=== PATIENT | female | born 1940 | race Caucasian/White ===

== ENCOUNTER → 2018-02-10 08:09 | Outpatient (CLI) | payer MEDICARE, SELFPAY ==
[2018-02-10 09:09] LABS: Add Manual Diff / Slide Review NO; Basophils Percent Auto 0.9 % (0-2); Eosinophils Percent Auto 3.8 % (2-4); Hematocrit 39.5 % (36-46); Hemoglobin 13.4 g/dL (12.0-16.0); Lymphocytes Percent Auto 21.8 % (25-40); Mean Corpuscular HGB Conc 33.9 % (30-36); Mean Corpuscular Hemoglobin 30.4 PG (26-34); Mean Corpuscular Volume 89.7 fL (80-100); Monocytes Percent Auto 9.2 % (3-14); Neutrophils Absolute Auto 5100 /uL (3000-5900); Neutrophils Percent Auto 64.3 % (50-75); Platelet Count 274 X10^3/uL (150-400); Red Cell Distribution Width 14.4 % (11.6-14.8); White Blood Cell Count 7.9 X10^3/uL (4.5-11.0)
[2018-02-10 09:22] LABS: Hemoglobin A1C% w Est Avg Glu 6.6 % (4.0-6.0)
[2018-02-10 09:38] LABS: Alanine Aminotransferase 33 IU/L (9-52); Albumin 4.4 g/dL (3.5-5.0); Albumin Globulin Ratio 1.5 (1.0-2.8); Alkaline Phosphatase 53 U/L (38-126); Aspartate Aminotransferase 29 IU/L (14-36); BUN Creatinine Ratio 21.9 (6-22); Bilirubin Total 0.4 mg/dL (0.2-1.3); Blood Urea Nitrogen 35 mg/dL (7-17); Calcium 10.5 mg/dL (8.4-10.2); Carbon Dioxide 30 mmol/L (22-32); Chloride 104 mmol/L (98-107); Cholesterol 154 mg/dL (140-199); Estimated Glomerular Filt Rate 31.4 mL/min (>60); Glucose 85 mg/dL (80-110); HDL Cholesterol 39 mg/dL (40-60); HEMOLYSIS < 15 (0-50); LDL Cholesterol Calculated 79 mg/dL (<100); Potassium 4.3 mmol/L (3.4-5.1); Sodium 146 mmol/L (137-145); Total Protein 7.4 g/dL (6.3-8.2); Triglycerides 181 mg/dL (35-150)
== END ==
PROVIDERS: PCP Family Medicine; Visit Provider Family Medicine
DX: E11.9 Type 2 diabetes mellitus without complications (principal); I10 Essential (primary) hypertension; E78.5 Hyperlipidemia, unspecified
CPT/HCPCS: 36415; 80053; 80061; 82565; 83036; 84520; 85025

== ENCOUNTER → 2018-08-20 08:12 | Outpatient (CLI) | payer MEDICARE, SELFPAY ==
[2018-08-20 09:27] LABS: Add Manual Diff / Slide Review NO; Basophils Absolute Auto 100 /uL (0-100); Basophils Percent Auto 1.2 % (0-2); Eosinophils Absolute Auto 400 /uL (0-450); Eosinophils Percent Auto 5.2 % (2-4); Hemoglobin 13.4 g/dL (12.0-16.0); Lymphocytes Absolute Auto 1800 /uL (1100-4500); Lymphocytes Percent Auto 21.1 % (25-40); Mean Corpuscular HGB Conc 34.3 % (30-36); Mean Corpuscular Hemoglobin 31.4 PG (26-34); Mean Corpuscular Volume 91.4 fL (80-100); Monocytes Absolute Auto 700 /uL (0-900); Monocytes Percent Auto 8.2 % (3-14); Neutrophils Absolute Auto 5500 /uL (1500-7000); Neutrophils Percent Auto 64.3 % (50-75); Platelet Count 276 X10^3/uL (150-400); Red Blood Cell Count 4.27 X10^6/uL (4.0-5.2); Red Cell Distribution Width 13.7 % (11.6-14.8); White Blood Cell Count 8.5 X10^3/uL (4.5-11.0)
[2018-08-20 09:37] LABS: Hemoglobin A1C% w Est Avg Glu 6.6 % (4.0-6.0)
[2018-08-20 09:57] LABS: Alanine Aminotransferase 27 IU/L (9-52); Albumin 4.5 g/dL (3.5-5.0); Albumin Globulin Ratio 1.4 (1.0-2.8); Alkaline Phosphatase 56 U/L (38-126); Aspartate Aminotransferase 31 IU/L (14-36); BUN Creatinine Ratio 25.4 (6-22); Bilirubin Total 0.3 mg/dL (0.2-1.3); Blood Urea Nitrogen 33 mg/dL (7-17); Calcium 10.4 mg/dL (8.4-10.2); Carbon Dioxide 28 mmol/L (22-32); Chloride 101 mmol/L (98-107); Cholesterol 165 mg/dL (140-199); Estimated Glomerular Filt Rate 39.8 mL/min (>60); Globulin 3.3 g/dL (1.7-4.1); Glucose 83 mg/dL (80-110); HDL Cholesterol 35 mg/dL (40-60); HEMOLYSIS < 15 (0-50); LDL Cholesterol Calculated 85 mg/dL (<100); Sodium 141 mmol/L (137-145); Total Protein 7.8 g/dL (6.3-8.2); Triglycerides 224 mg/dL (35-150)
[2018-08-20 10:28] LABS: TSH w/ Reflex to FT4 3.75 uIU/mL (0.47-4.68)
[2018-08-23 17:39] LABS: Parathyroid Hormone Int 6 pg/mL (14-64)
== END ==
PROVIDERS: Family Provider Family Medicine; PCP Family Medicine; Visit Provider Family Medicine
DX: E11.9 Type 2 diabetes mellitus without complications (principal); E78.5 Hyperlipidemia, unspecified; I10 Essential (primary) hypertension; E83.52 Hypercalcemia
CPT/HCPCS: 36415; 80053; 80061; 83036; 83970; 84443; 85025

== ENCOUNTER → 2019-03-04 07:50 | Outpatient (CLI) | payer MEDICARE, SELFPAY ==
[2019-03-04 08:32] LABS: Hemoglobin A1C% w Est Avg Glu 7.7 % (4.0-6.0)
[2019-03-04 08:56] LABS: Creatinine Urine Random 72.4 mg/dL
[2019-03-04 09:01] LABS: BUN Creatinine Ratio 30.7 (6-22); Blood Urea Nitrogen 43 mg/dL (7-17); Carbon Dioxide 24 mmol/L (22-32); Chloride 105 mmol/L (98-107); Estimated Glomerular Filt Rate 36.6 mL/min (>60); Glucose 114 mg/dL (80-110); HEMOLYSIS < 15 (0-50); Microalbumin Urine Random 2.1 mg/dL (0-1.6); Potassium 4.6 mmol/L (3.4-5.1); Sodium 140 mmol/L (137-145)
== END ==
PROVIDERS: PCP Family Medicine; Visit Provider Family Medicine
DX: E11.9 Type 2 diabetes mellitus without complications (principal); I10 Essential (primary) hypertension
CPT/HCPCS: 36415; 80048; 82043; 82570; 83036

== ENCOUNTER → 2019-10-29 07:46 | Outpatient (CLI) | payer MEDICARE, SELFPAY ==
[2019-10-29 08:32] LABS: Add Manual Diff / Slide Review NO; Basophils Absolute Auto 100 /uL (0-100); Basophils Percent Auto 1.1 % (0-2); Eosinophils Absolute Auto 300 /uL (0-450); Eosinophils Percent Auto 3.4 % (2-4); Hematocrit 38.1 % (36-46); Hemoglobin 13.2 g/dL (12.0-16.0); Lymphocytes Absolute Auto 1800 /uL (1100-4500); Lymphocytes Percent Auto 18.8 % (25-40); Mean Corpuscular HGB Conc 34.7 % (30-36); Mean Corpuscular Hemoglobin 32.1 PG (26-34); Mean Corpuscular Volume 92.5 fL (80-100); Monocytes Absolute Auto 800 /uL (0-900); Neutrophils Absolute Auto 6400 /uL (1500-7000); Neutrophils Percent Auto 67.7 % (50-75); Platelet Count 263 X10^3/uL (150-400); Red Blood Cell Count 4.12 X10^6/uL (4.0-5.2); Red Cell Distribution Width 14.4 % (11.6-14.8); White Blood Cell Count 9.4 X10^3/uL (4.5-11.0)
[2019-10-29 08:34] LABS: Hemoglobin A1C% w Est Avg Glu 8.3 % (4.0-6.0)
[2019-10-29 08:37] LABS: Alanine Aminotransferase 27 IU/L (<35); Albumin 4.3 g/dL (3.5-5.0); Albumin Globulin Ratio 1.3 (1.0-2.8); Alkaline Phosphatase 63 U/L (38-126); Aspartate Aminotransferase 31 IU/L (14-36); BUN Creatinine Ratio 23.5 (6-22); Bilirubin Total 0.4 mg/dL (0.2-1.3); Blood Urea Nitrogen 31 mg/dL (7-17); Calcium 10.4 mg/dL (8.4-10.2); Carbon Dioxide 30 mmol/L (22-32); Chloride 103 mmol/L (98-107); Cholesterol 160 mg/dL (140-199); Globulin 3.3 g/dL (1.7-4.1); Glucose 89 mg/dL (80-110); HDL Cholesterol 31 mg/dL (40-60); HEMOLYSIS < 15 (0-50); LDL Cholesterol Calculated 80 mg/dL (<100); Potassium 4.1 mmol/L (3.4-5.1); Sodium 139 mmol/L (137-145); Total Protein 7.6 g/dL (6.3-8.2); Triglycerides 245 mg/dL (35-150)
[2019-10-29 09:10] LABS: Thyroid Stimulating Hormone 3.18 uIU/mL (0.47-4.68)
[2019-10-29 10:10] LABS: Creatinine Urine Random 59.6 mg/dL
[2019-10-29 10:14] LABS: Microalbumi Creatinin Ratio Ur 55.3 ug/mg CR (<30); Microalbumin Urine Random 3.3 mg/dL (0-1.6)
== END ==
PROVIDERS: PCP Family Medicine; Referring Provider Family Medicine; Visit Provider Family Medicine
DX: E11.9 Type 2 diabetes mellitus without complications (principal); E78.5 Hyperlipidemia, unspecified; I10 Essential (primary) hypertension
CPT/HCPCS: 36415; 80053; 80061; 82043; 82570; 83036; 84443; 85025

== ENCOUNTER → 2020-05-17 15:57 | Outpatient (CLI) | payer MEDICARE, SELFPAY ==
[2020-05-17 17:21] LABS: BUN Creatinine Ratio 23.7 (6-22); Blood Urea Nitrogen 37 mg/dL (7-17); Calcium 10.3 mg/dL (8.4-10.2); Carbon Dioxide 29 mmol/L (22-32); Chloride 103 mmol/L (98-107); Estimated Glomerular Filt Rate 32.1 mL/min (>60); Glucose 86 mg/dL (80-110); HEMOLYSIS < 15 (0-50); Potassium 4.3 mmol/L (3.4-5.1); Sodium 139 mmol/L (137-145)
== END ==
PROVIDERS: PCP Family Medicine; Referring Provider Family Medicine; Visit Provider Family Medicine
DX: E11.9 Type 2 diabetes mellitus without complications (principal)
CPT/HCPCS: 36415; 80048; 83036

== ENCOUNTER → 2020-07-07 16:15 | Outpatient (CLI) | payer MEDICARE, SELFPAY ==
[2020-07-07] MEDS: COVID-19 VACC, Ad26(JANSSEN)/PF 0.5 ML IM (16:47)
== END ==
PROVIDERS: PCP Family Medicine; Visit Provider Internal Medicine
DX: Z23 Encounter for immunization (principal)
CPT/HCPCS: 0031A; 91303

== ENCOUNTER → 2020-11-14 09:39 | Outpatient (CLI) | payer MEDICARE, SELFPAY ==
[2020-11-14 10:22] LABS: BUN Creatinine Ratio 19.2 (6-22); Blood Urea Nitrogen 30 mg/dL (7-17); Calcium 10.8 mg/dL (8.4-10.2); Carbon Dioxide 25 mmol/L (22-32); Chloride 104 mmol/L (98-107); Estimated Glomerular Filt Rate 32.1 mL/min (>60); Glucose 76 mg/dL (80-110); HEMOLYSIS < 15 (0-50); Potassium 4.3 mmol/L (3.4-5.1); Sodium 141 mmol/L (137-145)
[2020-11-14 10:37] LABS: Creatinine Urine Random 53.4 mg/dL
[2020-11-14 10:41] LABS: Microalbumi Creatinin Ratio Ur 136.7 ug/mg CR (<30); Microalbumin Urine Random 7.3 mg/dL (0-1.6)
== END ==
PROVIDERS: PCP Family Medicine; Referring Provider Family Medicine; Visit Provider Family Medicine
DX: E11.9 Type 2 diabetes mellitus without complications (principal); E78.5 Hyperlipidemia, unspecified; N18.9 Chronic kidney disease, unspecified
CPT/HCPCS: 36415; 80048; 82043; 82570; 83036

== ENCOUNTER → 2021-05-15 09:51 | Outpatient (CLI) | payer MEDICARE, SELFPAY ==
[2021-05-15 11:14] LABS: Hemoglobin A1C% w Est Avg Glu 7.7 % (4.0-6.0)
[2021-05-15 12:55] LABS: BUN Creatinine Ratio 23.1 (6-22); Blood Urea Nitrogen 36 mg/dL (7-17); Calcium 11.2 mg/dL (8.4-10.2); Carbon Dioxide 28 mmol/L (22-32); Chloride 101 mmol/L (98-107); Glucose 102 mg/dL (80-110); HEMOLYSIS < 15 (0-50); Potassium 4.9 mmol/L (3.4-5.1); Sodium 141 mmol/L (137-145)
[2021-05-15 16:03] LABS: Microalbumi Creatinin Ratio Ur 143.6 ug/mg CR (<30); Microalbumin Urine Random 13.5 mg/dL (0-1.6)
== END ==
PROVIDERS: PCP Family Medicine; Referring Provider Family Medicine; Visit Provider Family Medicine
DX: E11.9 Type 2 diabetes mellitus without complications (principal)
CPT/HCPCS: 36415; 80048; 82043; 82570; 83036

== ENCOUNTER → 2021-11-07 09:11 | Outpatient (CLI) | payer MEDICARE, SELFPAY ==
[2021-11-07 10:44] LABS: Add Manual Diff / Slide Review NO; Basophils Absolute Auto 100 /uL (0-100); Eosinophils Absolute Auto 300 /uL (0-450); Eosinophils Percent Auto 3.4 % (2-4); Hematocrit 38.8 % (36-46); Hemoglobin 13.3 g/dL (12.0-16.0); Lymphocytes Absolute Auto 1900 /uL (1100-4500); Lymphocytes Percent Auto 20.3 % (25-40); Mean Corpuscular HGB Conc 34.3 % (30-36); Mean Corpuscular Hemoglobin 31.3 PG (26-34); Mean Corpuscular Volume 91.1 fL (80-100); Monocytes Absolute Auto 800 /uL (0-900); Neutrophils Absolute Auto 6100 /uL (1500-7000); Neutrophils Percent Auto 66.3 % (50-75); Platelet Count 289 X10^3/uL (150-400); Red Blood Cell Count 4.26 X10^6/uL (4.0-5.2); Red Cell Distribution Width 14.8 % (11.6-14.8); White Blood Cell Count 9.2 X10^3/uL (4.5-11.0)
[2021-11-07 11:05] LABS: Alanine Aminotransferase 25 IU/L (<35); Albumin 4.2 g/dL (3.5-5.0); Albumin Globulin Ratio 1.4 (1.0-2.8); Alkaline Phosphatase 53 U/L (38-126); Aspartate Aminotransferase 28 IU/L (14-36); BUN Creatinine Ratio 23.2 (6-22); Bilirubin Total 0.5 mg/dL (0.2-1.3); Blood Urea Nitrogen 32 mg/dL (7-17); Calcium 10.8 mg/dL (8.4-10.2); Carbon Dioxide 26 mmol/L (22-32); Chloride 104 mmol/L (98-107); Cholesterol 162 mg/dL (140-199); Estimated Glomerular Filt Rate 39 mL/min (>60); Glucose 54 mg/dL (80-110); HDL Cholesterol 37 mg/dL (40-60); HEMOLYSIS < 15 (0-50); LDL Cholesterol Calculated 86 mg/dL (<100); Potassium 4.3 mmol/L (3.4-5.1); Sodium 142 mmol/L (137-145); Total Protein 7.2 g/dL (6.3-8.2); Triglycerides 197 mg/dL (35-150)
[2021-11-07 11:55] LABS: Hemoglobin A1C% w Est Avg Glu 7.4 % (4.0-6.0)
== END ==
PROVIDERS: PCP Family Medicine; Referring Provider Family Medicine; Visit Provider Family Medicine
DX: E11.9 Type 2 diabetes mellitus without complications (principal)
CPT/HCPCS: 36415; 80053; 80061; 83036; 85025

== ENCOUNTER → 2022-05-11 09:50 | Outpatient (CLI) | payer MEDICARE, SELFPAY ==
[2022-05-11 10:34] LABS: Add Manual Diff / Slide Review NO; Basophils Absolute Auto 100 /uL (0-100); Basophils Percent Auto 1.1 % (0-2); Eosinophils Absolute Auto 400 /uL (0-450); Eosinophils Percent Auto 4.2 % (2-4); Hematocrit 38.5 % (36-46); Hemoglobin 13.3 g/dL (12.0-16.0); Lymphocytes Absolute Auto 1700 /uL (1100-4500); Lymphocytes Percent Auto 17.8 % (25-40); Mean Corpuscular HGB Conc 34.5 % (30-36); Mean Corpuscular Hemoglobin 31.9 PG (26-34); Mean Corpuscular Volume 92.3 fL (80-100); Monocytes Absolute Auto 800 /uL (0-900); Monocytes Percent Auto 8.6 % (3-14); Neutrophils Absolute Auto 6500 /uL (1500-7000); Neutrophils Percent Auto 68.3 % (50-75); Platelet Count 292 X10^3/uL (150-400); Red Blood Cell Count 4.17 X10^6/uL (4.0-5.2); White Blood Cell Count 9.5 X10^3/uL (4.5-11.0)
[2022-05-11 10:59] LABS: Alanine Aminotransferase 29 IU/L (<35); Albumin 4.3 g/dL (3.5-5.0); Albumin Globulin Ratio 1.3 (1.0-2.8); Alkaline Phosphatase 65 U/L (38-126); Aspartate Aminotransferase 26 IU/L (14-36); BUN Creatinine Ratio 21.7 (6-22); Bilirubin Total 0.5 mg/dL (0.2-1.3); Blood Urea Nitrogen 30 mg/dL (7-17); Calcium 10.6 mg/dL (8.4-10.2); Carbon Dioxide 29 mmol/L (22-32); Chloride 99 mmol/L (98-107); Estimated Glomerular Filt Rate 39 mL/min (>60); Globulin 3.2 g/dL (1.7-4.1); Glucose 71 mg/dL (80-110); HEMOLYSIS < 15 (0-50); Potassium 4.1 mmol/L (3.4-5.1); Sodium 140 mmol/L (137-145); Total Protein 7.5 g/dL (6.3-8.2)
[2022-05-11 11:11] LABS: Hemoglobin A1C% w Est Avg Glu 8.5 % (4.0-6.0)
[2022-05-11 11:29] LABS: TSH w/ Reflex to FT4 3.63 uIU/mL (0.47-4.68)
== END ==
PROVIDERS: PCP Family Medicine; Referring Provider Family Medicine; Visit Provider Family Medicine
DX: E11.9 Type 2 diabetes mellitus without complications (principal); I10 Essential (primary) hypertension; E78.2 Mixed hyperlipidemia; N18.32 Chronic kidney disease, stage 3b; N18.9 Chronic kidney disease, unspecified; Z79.4 Long term (current) use of insulin
CPT/HCPCS: 36415; 80053; 83036; 84443; 85025

== ENCOUNTER → 2022-11-09 08:11 | Outpatient (CLI) | payer MEDICARE, SELFPAY ==
[2022-11-09 10:21] LABS: BUN Creatinine Ratio 23.3 (6-22); Blood Urea Nitrogen 35 mg/dL (7-17); Carbon Dioxide 28 mmol/L (22-32); Chloride 101 mmol/L (98-107); Estimated Glomerular Filt Rate 35 mL/min (>60); Glucose 81 mg/dL (80-110); HEMOLYSIS < 15 (0-50); Potassium 4.3 mmol/L (3.4-5.1); Sodium 139 mmol/L (137-145)
[2022-11-10 04:00] LABS: Labcorp Hemoglobin (Hb) A1c 8.3 % (4.8-5.6)
== END ==
PROVIDERS: PCP Family Medicine; Referring Provider Family Medicine; Visit Provider Family Medicine
DX: E11.9 Type 2 diabetes mellitus without complications (principal)
CPT/HCPCS: 36415; 80048; 83036

== ENCOUNTER → 2023-05-15 08:23 | Outpatient (CLI) | payer MEDICARE, SELFPAY ==
[2023-05-15 09:12] LABS: BUN Creatinine Ratio 23.3 (6-22); Blood Urea Nitrogen 41 mg/dL (7-17); Calcium 11.1 mg/dL (8.4-10.2); Carbon Dioxide 27 mmol/L (22-32); Chloride 101 mmol/L (98-107); Estimated Glomerular Filt Rate 29 mL/min (>60); Glucose 72 mg/dL (80-110); HEMOLYSIS < 15 (0-50); Hemoglobin A1C% w Est Avg Glu 8.1 % (4.0-6.0); Potassium 4.2 mmol/L (3.4-5.1); Sodium 139 mmol/L (137-145)
[2023-05-15 13:06] LABS: Creatinine Urine Random 79.6 mg/dL
[2023-05-15 13:14] LABS: Microalbumi Creatinin Ratio Ur 97.9 ug/mg CR (<30); Microalbumin Urine Random 7.8 mg/dL (0-1.6)
== END ==
PROVIDERS: PCP Family Medicine; Referring Provider Family Medicine; Visit Provider Family Medicine
DX: E11.9 Type 2 diabetes mellitus without complications (principal); N18.9 Chronic kidney disease, unspecified; I10 Essential (primary) hypertension
CPT/HCPCS: 36415; 80048; 82043; 82570; 83036

== ENCOUNTER → 2023-05-24 11:57 | Outpatient (CLI) | payer MEDICARE, SELFPAY | PROVIDERS: PCP Family Medicine; Referring Provider Family Medicine; Visit Provider Family Medicine | DX: J44.9 Chronic obstructive pulmonary disease, unspecified (principal); Z87.891 Personal history of nicotine dependence | CPT/HCPCS: 94060; 94726; 94729 ==

== ENCOUNTER 2023-08-19 11:39 | Emergency (ER) | payer MEDICARE, SELFPAY ==
[2023-08-19 12:19] VITALS: BP 178/75; PULSE 69; RESP 18; O2SAT 99; BMI 29.2
--- NOTE | 2023-08-19 14:03 | DI.US.S_ITS ---
PROCEDURE: US PERIPH VENOUS LOW EXTREM RT INDICATIONS: leg pain TECHNIQUE: Real-time imaging, as well as color and pulse Doppler interrogation, were performed of the lower extremity deep veins from the inguinal ligament to the popliteal fossa, with documentation of the visualized calf veins. COMPARISON: None. FINDINGS: The common femoral, femoral, popliteal, and the visualized calf veins are normally compressible, and free of intraluminal thrombus. Color and pulse Doppler demonstrate normal phasic intraluminal flow. There is normal augmentation response to distal compression maneuver. IMPRESSION: No findings of lower extremity deep venous thrombosis. Dictated by: Noah Robb M.D. on 08/19/2023 at 14:59 Approved by: Noah Robb M.D. on 08/19/2023 at 15:05
--- NOTE | 2023-08-19 14:11 | DI.RAD.S_ITS ---
PROCEDURE: XR FOOT RT MIN 3V INDICATIONS: foot pain TECHNIQUE: 3 views of the foot were acquired. COMPARISON: [facility], , FOOT 3V RIGHT, 07/03/2016, 3:24. FINDINGS: Bones: No fractures or dislocations. No suspicious bony lesions. Mild midfoot with scattered IP degenerative change. Soft tissues: No tibiotalar joint effusion. Achilles tendon appears normal. IMPRESSION: No visualized acute fracture or dislocation. However, if clinical concern and/or pain persist, short interval imaging followup in 7-10 days is recommended, as occult injury cannot be definitively excluded. Dictated by: Jes Dowling M.D. on 08/19/2023 at 16:15 Approved by: Jes Dowling M.D. on 08/19/2023 at 16:16
[2023-08-19 16:24] VITALS: BP 151/67; PULSE 55; RESP 18; O2SAT 98
--- NOTE | 2023-08-19 16:54 | ED.EXTPRO ---
HPI - Extremity Problem <Justin Solis PA-C - Last Filed: 08/19/23 17:01> General Chief complaint: Extremity Problem,Nontraumatic Stated complaint: Right foot pain Time Seen by Provider: 08/19/23 12:38 Source: patient Mode of arrival: Ambulatory History of Present Illness HPI Narrative: 83-year-old female with past medical history diabetes, hyperlipidemia, hypertension, CKD, former smoker presents to the ED with worsening right foot and leg pain. Patient is being seen by communication studies professor Dr. Evans and is currently being evaluated for peripheral artery disease. Patient has a arterial Doppler study scheduled for August 27. Patient also had a echocardiogram done. Patient is here in the ED due to the worsening foot pain that is extending all the way to the hip. Patient denies any trauma. Patient does have some numbness in bilateral feet due to diabetic neuropathy. Patient is able to bear weight and walk, although it is painful. Related Data Home Medications Medication Instructions Recorded Confirmed VITAMIN D 400 iu PO Q DAY ##0 01/11/11 07/24/23 magnesium oxide 400 mg (241.3 mg 400 mg PO QDAY ##0 07/19/16 07/24/23 magnesium) tablet Previous Rx's Medication Instructions Recorded lancing device (lancing device #1 ea 11/13/17 with lancets) blood sugar diagnostic (Blood #200 ea 03/11/19 Glucose Test strips) lancets 31 gauge #100 ea 03/11/19 pen needle, diabetic 31 gauge x #100 ea 03/22/20 3/16 (Comfort EZ Pen [place]) Disabled Parking #1 ea 05/17/22 Lantus Solostar U-100 Insulin 100 50 unit (0.5 mL) SUBCUT DAILY #15 05/20/23 unit/mL (3 mL) subcutaneous pen mL (insulin glargine) amlodipine 5 mg tablet See Rx Instructions .Route 05/20/23 .COMPLEX #90 tabs atorvastatin 20 mg tablet (Lipitor) 20 mg PO BEDTIME #90 tabs 05/20/23 lisinopril 20 See Rx Instructions .Route 05/20/23 mg-hydrochlorothiazide 12.5 mg .COMPLEX #180 tabs tablet metoprolol succinate 50 mg See Rx Instructions .Route 05/20/23 tablet,extended release 24 hr .COMPLEX #90 tabs albuterol sulfate 90 mcg/actuation 2 puff PO Q6H PRN for wheezing #21 07/16/23 aerosol inhaler ea glipizide 5 mg tablet 5 mg PO DAILY #90 tabs 07/24/23 clindamycin HCl 150 mg capsule 450 mg (3 x 150 mg) PO TID 5 days 08/19/23 #45 caps Allergies Allergy/AdvReac Type Severity Reaction Status Date / Time Penicillins [PENICILLINS] Allergy Severe SOB Verified 05/20/23 08:56 adhesive [ADHESIVE] Allergy Mild localized Verified 05/20/23 08:56 rash cephalexin [CEPHALEXIN] Allergy Mild rash Verified 05/20/23 08:56 Sulfa (Sulfonamide Allergy Mild rash Verified 05/20/23 08:56 Antibiotics) [SULFA (SULFONAMIDE ANTIBIOTICS)] semaglutide AdvReac Intermediate Nausea; Verified 07/24/23 17:11 abdominal discomfort Review of Systems <Justin Solis PA-C - Last Filed: 08/19/23 17:01> Constitutional Constitutional: Denies chills, Denies fatigue, Denies fever(s), Denies frequent falls, Denies lethargy and Denies weakness Eyes Eyes: Denies change in vision, Denies eye discharge, Denies irritation and Denies loss of vision ENT Ears, Nose, Mouth, and Throat: Denies change in voice, Denies dizziness, Denies neck pain, Denies sore throat and Denies throat swelling Cardiovascular Cardiovascular: Denies chest pain, Denies irregular heart rhythm, Denies lightheadedness, Denies palpitations, Denies dyspnea, Denies dyspnea on exertion and Denies orthopnea Respiratory Respiratory: Denies cough, Denies dyspnea, Denies dyspnea on exertion and Denies wheezing Gastrointestinal Gastrointestinal: Denies abdominal pain, Denies change in bowel habits, Denies diarrhea, Denies nausea and Denies vomiting Musculoskeletal Musculoskeletal: Denies neck pain and Denies numbness Comments: Right foot and leg pain, redness Integumentary/Breasts Skin/Breast: Denies pruritus, Denies erythema, Denies rash and Denies wounds Neurologic Neurologic: Denies behavioral changes, Denies confusion, Denies dizziness, Denies frequent falls, Denies loss of vision, Denies numbness and Denies weakness Psychiatric Psychiatric: Denies anxiety, Denies behavioral changes, Denies confusion, Denies depression, Denies homicidal ideation and Denies suicidal ideation Endocrine Endocrine: Denies fatigue, Denies flushing and Denies palpitations Hematologic/Lymphatic Hematologic/Lymphatic: Denies easy bruising Allergic/Immunologic Allergic/Immunologic: Denies urticaria, Denies throat swelling and Denies wheezing Patient History <Justin Solis PA-C - Last Filed: 08/19/23 17:01> Medical History Tendonitis of finger COPD (chronic obstructive pulmonary disease) Osteopenia Diabetes mellitus Hypertension Hyperlipidemia Surgical History History of breast biopsy History of cataract removal with insertion of prosthetic lens Status post cholecystectomy Family History Mother Congestive heart failure CVA (cerebral infarction) Afib Social History marital status: Smoking Status: Former smoker alcohol intake: never substance use type: does not use Smoking Status: Former smoker Substance Use Type: does not use Exam <Justin Solis PA-C - Last Filed: 08/19/23 17:01> Narrative Exam Narrative: Const General:?cooperative, healthy appearing and comfortable [facility] Head:?normal to inspection Ears:?hearing grossly normal bilaterally Nose:?external nose normal Face and sinus:?normal facial exam and sinuses nontender Mouth:?oral mucosae normal Throat:?posterior oropharynx normal Eyes General:?appearance normal, both eyes and all related structures Neck Neck:?normal visual inspection and no lymphadenopathy noted Resp Effort & Inspection:?normal respiratory effort Auscultation:?clear to auscultation bilaterally Cardio Rate:?regular rate Rhythm:?regular rhythm Musculoskeletal/integumentary Right foot appears erythematous. Digits 1 and 2 feel numb to touch per patient. There is sensation in the other toes. Foot feel warm. Pedal pulses are intact. Patient is able to walk normally. Compartments are soft. Neuro General:?patient alert, patient awake and patient oriented x3 Initial Vital Signs Initial Vital Signs: Vital Signs Pulse Rate 69 08/19/23 12:19 Respiratory Rate 18 08/19/23 12:19 Blood Pressure 178/75 H 08/19/23 12:19 Pulse Oximetry 99 08/19/23 12:19 Oxygen Delivery Method Room Air 08/19/23 12:19 <Robina Henley MD - Last Filed: 08/20/23 08:48> Initial Vital Signs Initial Vital Signs: Vital Signs Pulse Rate 69 08/19/23 12:19 Respiratory Rate 18 08/19/23 12:19 Blood Pressure 178/75 H 08/19/23 12:19 Pulse Oximetry 99 08/19/23 12:19 Oxygen Delivery Method Room Air 08/19/23 12:19 Course <Justin Solis PA-C - Last Filed: 08/19/23 17:01> Orders Ordered: ED Orders 08/19/23 14:03 US periph venous low extrem rt Stat 08/19/23 14:11 XR foot RT min 3V Stat Vital Signs Vital signs: Vital Signs - 8 hr 08/19/23 12:19 08/19/23 16:24 Pulse Rate 69 55 L Respiratory Rate 18 18 Blood Pressure 178/75 H 151/67 H Pulse Oximetry 99 98 Oxygen Delivery Method Room Air Room Air <Robina Henley MD - Last Filed: 08/20/23 08:48> Orders Ordered: ED Orders 08/19/23 14:03 US periph venous low extrem rt Stat 08/19/23 14:11 XR foot RT min 3V Stat Vital Signs Vital signs: Vital Signs - 8 hr 08/19/23 12:19 08/19/23 16:24 Pulse Rate 69 55 L Respiratory Rate 18 18 Blood Pressure 178/75 H 151/67 H Pulse Oximetry 99 98 Oxygen Delivery Method Room Air Room Air MDM - Extremity (Nontraumatic) <Justin Solis PA-C - Last Filed: 08/19/23 17:01> MDM Narrative Medical decision making narrative: 83-year-old female with past medical history diabetes, hyperlipidemia, hypertension, CKD, former smoker presents to the ED with worsening right foot and leg pain. Concern for peripheral arterial disease versus DVT versus cellulitis versus fracture/dislocation versus musculoskeletal sprain/strain versus other. Obtained x-ray and ultrasound. Ultrasound without DVTs. X-ray without acute findings. Discussed findings with patient. Given that patient is neurovascularly intact with good pedal pulses, patient is okay to wait for the scheduled arterial scan for a week. Recommend patient follow-up with Dr. Evans as soon as possible. Also discussed the possibility of an overlying skin infection/cellulitis. Prescribed antibiotics. Recommend Tylenol for pain control. ED return precautions were discussed with patient. Patient verbalized understanding. Medical records reviewed: Yes Discharge Plan Departure Patient Disposition: Home Clinical Impression: Foot pain Qualifiers: Laterality: right Qualified Code(s): M79.671 - Pain in right foot Instructions: DI for Cellulitis -- Adult Activity Restrictions/Additional Instructions: You were evaluated in the ED today for right-sided foot and leg pain. Your ultrasound did not show any blood clots/DVTs. Your x-ray was also normal. It is possible that your symptoms are caused from peripheral arterial disease versus a skin infection such as cellulitis. You are being prescribed antibiotics. Please obtain the arterial ultrasound and follow-up follow-up with Dr. Evans as planned in a week. You may also take Tylenol for pain management. Return to the ED if you have worsening symptoms, numbness, tingling, weakness, chest pain, shortness of breath. Prescriptions: New clindamycin HCl 150 mg capsule 450 mg PO TID 5 Days Qty: 45 0RF No Action (DME) Blood Glucose Test Strip See Dose Instructions .ROUTE .MEDSUPPLY Qty: 200 6RF Dose Instruction: As directed Rx Instructions: use to check blood sugar twice a day (DME) lancets 31 gauge misc See Dose Instructions .ROUTE .MEDSUPPLY Qty: 100 3RF Dose Instruction: As directed Rx Instructions: use to check blood sugar twice a day (DME) Disabled Parking See Rx Instructions .ROUTE .MEDSUPPLY Qty: 1 0RF Rx Instructions: I find this patient to be medically disabled and qualified for Disabled Parking as indicated, and signed, on the Accompanying Disabled Parking Application for Individuals VITAMIN D 400 iu PO Q DAY Qty: 0 magnesium oxide 400 MG tablet 400 mg PO QDAY Qty: 0 (DME) lancing device [lancing device with lancets] misc See Dose Instructions .ROUTE .MEDSUPPLY Qty: 1 0RF Dose Instruction: As directed Rx Instructions: use to check blood sugar twice a day (DME) pen needle, diabetic [Comfort EZ Pen [place]] 31 gauge x 3/16 needle See Dose Instructions .ROUTE .MEDSUPPLY Qty: 100 3RF Dose Instruction: As directed Rx Instructions: For insulin injection daily albuterol sulfate 90 mcg/actuation HFA aerosol inhaler 2 puff PO Q6H PRN (Reason: for wheezing) Qty: 21 11RF amlodipine 5 mg tablet See Rx Instructions .ROUTE .COMPLEX Qty: 90 3RF Dose Instruction: Take 1 tablet by mouth once daily Rx Instructions: Take 1 tablet by mouth once daily atorvastatin [Lipitor] 20 mg tablet 20 mg PO BEDTIME Qty: 90 3RF Lantus Solostar U-100 Insulin 100 unit/mL (3 mL) insulin pen 50 unit SUBCUT DAILY Qty: 15 5RF lisinopril-hydrochlorothiazide 20-12.5 mg tablet See Rx Instructions .ROUTE .COMPLEX Qty: 180 3RF Dose Instruction: Take 1 tablet by mouth twice daily Rx Instructions: Take 1 tablet by mouth twice daily metoprolol succinate 50 mg tablet extended release 24 hr See Rx Instructions .ROUTE .COMPLEX Qty: 90 3RF Dose Instruction: Take 1 tablet by mouth once daily Rx Instructions: Take 1 tablet by mouth once daily glipizide 5 mg tablet 5 mg PO DAILY Qty: 90 3RF Referrals: Ramón Betancourt MD [Primary Care Provider] - Stand Alone Forms: Patient Portal/API ED Sign-out <Robina Henley MD - Last Filed: 08/20/23 08:48> Cosign ED Attending Cosignature Attestation: I was immediately available in the department for consultation throughout this patient's visit. Robina Henley MD
== END 2023-08-19 16:40 | disposition home or self-care (01) ==
PROVIDERS: Emergency Provider Student in an Organized Health Care Education/Training Program; PCP Family Medicine
DX: M79.671 Pain in right foot (principal)
CPT/HCPCS: 73630; 93971; 99281; 99283

== ENCOUNTER → 2023-08-28 15:05 | Outpatient (CLI) | payer MEDICARE, SELFPAY ==
--- NOTE | 2023-08-28 15:07 | DI.US.S_ITS ---
PROCEDURE: US ARTERIAL DUPLEX LE BI INDICATIONS: Peripheral vascular disease, unspecified TECHNIQUE: Color and pulse Doppler interrogation was performed of both lower extremity arterial systems, with image documentation. COMPARISON: None. FINDINGS: Right lower extremity: Common femoral artery: 32 cm/sec, with monophasic flow. Deep femoral artery: 33 cm/sec, with monophasic flow. Proximal superficial femoral artery: 34 cm/sec, with monophasic flow. Mid superficial femoral artery: 14 cm/sec, with monophasic flow. Distal superficial femoral artery: Occluded Popliteal artery: 37 cm/sec, with monophasic flow. Posterior tibial artery: 19 cm/sec, with monophasic flow. Anterior tibial artery/dorsalis pedis: 12/8 cm/sec, with monophasic flow. Daley-scale imaging description: Scattered atherosclerotic plaque Left lower extremity: Common femoral artery: 143 cm/sec, with monophasic flow. Deep femoral artery: 147 cm/sec, with monophasic flow. Proximal superficial femoral artery: 69 cm/sec, with monophasic flow. Mid superficial femoral artery: 24 cm/sec, with monophasic flow. Distal superficial femoral artery: 14 cm/sec, with monophasic flow. Popliteal artery: 25 cm/sec, with monophasic flow. Posterior tibial artery: Occluded Anterior tibial artery/dorsalis pedis: 18/0 cm/sec, with monophasic/occluded flow. Daley-scale imaging description: Scattered atherosclerotic plaque IMPRESSION: 1. Atherosclerotic plaque with monophasic waveforms throughout the bilateral lower extremity arterial vasculature suggestive of aortoiliac inflow disease. 2. The right distal superficial femoral artery and the left posterior tibial artery and dorsalis pedis artery are occluded. Dictated by: Steffany Shore M.D. on 08/29/2023 at 10:12 Approved by: Steffany Shore M.D. on 08/29/2023 at 10:14
== END ==
PROVIDERS: PCP Family Medicine; Referring Provider Internal Medicine Cardiovascular Disease; Visit Provider Internal Medicine Cardiovascular Disease
DX: I70.213 Atherosclerosis of native arteries of extremities with intermittent claudication, bilateral legs (principal)
CPT/HCPCS: 93925

== ENCOUNTER 2023-10-08 10:29 | Emergency (ER) | payer MEDICARE, SELFPAY ==
[2023-10-08 10:42] VITALS: BP 149/75; PULSE 65; RESP 15; TEMP 36.2; O2SAT 98; BMI 30.9
--- NOTE | 2023-10-08 11:31 | ED.EXTPRO ---
HPI - Extremity Problem <Justin Solis PA-C - Last Filed: 10/08/23 18:04> General Chief complaint: Extremity Problem,Nontraumatic Stated complaint: R Foot Pain Time Seen by Provider: 10/08/23 11:26 Source: patient Mode of arrival: Wheelchair History of Present Illness HPI Narrative: 83-year-old female with past medical history diabetes, hyperlipidemia, hypertension, CKD, former smoker, peripheral artery disease, diabetic neuropathy presents to the ED with worsening right foot pain since awakening this morning. Patient was seen on 08/18 with the same complaint and prescribed antibiotics for cellulitis which resolved the redness and pain. Patient however states that her foot has been getting progressively more red over the last week and the pain has been severe since this morning. Pain is aggravated with foot being dependent, improved with elevation. Patient denies fever, chills, nausea, vomiting. Patient recently had a arterial duplex study of bilateral lower extremities. The arterial scan shows atherosclerotic black with monophasic waveforms throughout the bilateral lower extremity arterial vasculature suggestive of aortoiliac inflow disease. The right distal superficial femoral artery and left posterior tibial artery and dorsalis pedis artery are occluded. Patient has a follow-up next week to discuss results of the scan. Related Data Home Medications Medication Instructions Recorded Confirmed VITAMIN D 400 iu PO Q DAY ##0 01/11/11 07/24/23 magnesium oxide 400 mg (241.3 mg 400 mg PO QDAY ##0 07/19/16 07/24/23 magnesium) tablet Previous Rx's Medication Instructions Recorded lancing device (lancing device #1 ea 11/13/17 with lancets) blood sugar diagnostic (Blood #200 ea 03/11/19 Glucose Test strips) lancets 31 gauge #100 ea 03/11/19 pen needle, diabetic 31 gauge x #100 ea 03/22/20/ (Comfort EZ Pen Diamond) Disabled Parking #1 ea 05/17/22 Lantus Solostar U-100 Insulin 100 50 unit (0.5 mL) SUBCUT DAILY #15 05/20/23 unit/mL (3 mL) subcutaneous pen mL (insulin glargine) amlodipine 5 mg tablet See Rx Instructions .Route 05/20/23 .COMPLEX #90 tabs atorvastatin 20 mg tablet (Lipitor) 20 mg PO BEDTIME #90 tabs 05/20/23 lisinopril 20 See Rx Instructions .Route 05/20/23 mg-hydrochlorothiazide 12.5 mg .COMPLEX #180 tabs tablet metoprolol succinate 50 mg See Rx Instructions .Route 05/20/23 tablet,extended release 24 hr .COMPLEX #90 tabs albuterol sulfate 90 mcg/actuation 2 puff PO Q6H PRN for wheezing #21 07/16/23 aerosol inhaler ea glipizide 5 mg tablet 5 mg PO DAILY #90 tabs 07/24/23 ciprofloxacin HCl 750 mg tablet 750 mg PO Q12H 14 days #28 tabs 10/08/23 clindamycin HCl 150 mg capsule 450 mg (3 x 150 mg) PO Q8H 14 days 10/08/23 #126 caps Allergies Allergy/AdvReac Type Severity Reaction Status Date / Time Penicillins [PENICILLINS] Allergy Severe SOB Verified 10/08/23 10:42 adhesive [ADHESIVE] Allergy Mild localized Verified 10/08/23 10:42 rash cephalexin [CEPHALEXIN] Allergy Mild rash Verified 10/08/23 10:42 Sulfa (Sulfonamide Allergy Mild rash Verified 10/08/23 10:42 Antibiotics) [SULFA (SULFONAMIDE ANTIBIOTICS)] semaglutide AdvReac Intermediate Nausea; Verified 10/08/23 10:42 abdominal discomfort Review of Systems <Justin Solis PA-C - Last Filed: 10/08/23 18:04> Constitutional Constitutional: Denies chills, Denies fatigue, Denies fever(s), Denies frequent falls, Denies lethargy and Denies weakness Eyes Eyes: Denies change in vision, Denies eye discharge, Denies irritation and Denies loss of vision ENT Ears, Nose, Mouth, and Throat: Denies change in voice, Denies dizziness, Denies neck pain, Denies sore throat and Denies throat swelling Cardiovascular Cardiovascular: Denies chest pain, Denies irregular heart rhythm, Denies lightheadedness, Denies palpitations, Denies dyspnea, Denies dyspnea on exertion and Denies orthopnea Respiratory Respiratory: Denies cough, Denies dyspnea, Denies dyspnea on exertion and Denies wheezing Gastrointestinal Gastrointestinal: Denies abdominal pain, Denies change in bowel habits, Denies diarrhea, Denies nausea and Denies vomiting Musculoskeletal Musculoskeletal: Denies neck pain and Denies numbness Comments: Right foot pain and redness Integumentary/Breasts Skin/Breast: Denies pruritus, Denies erythema, Denies rash and Denies wounds Neurologic Neurologic: Denies behavioral changes, Denies confusion, Denies dizziness, Denies frequent falls, Denies loss of vision, Denies numbness and Denies weakness Psychiatric Psychiatric: Denies anxiety, Denies behavioral changes, Denies confusion, Denies depression, Denies homicidal ideation and Denies suicidal ideation Endocrine Endocrine: Denies fatigue, Denies flushing and Denies palpitations Hematologic/Lymphatic Hematologic/Lymphatic: Denies easy bruising Allergic/Immunologic Allergic/Immunologic: Denies urticaria, Denies throat swelling and Denies wheezing Patient History <Justin Solis PA-C - Last Filed: 10/08/23 18:04> Medical History Tendonitis of finger COPD (chronic obstructive pulmonary disease) Osteopenia Diabetes mellitus Hypertension Hyperlipidemia Surgical History History of breast biopsy History of cataract removal with insertion of prosthetic lens Status post cholecystectomy Family History Mother Congestive heart failure CVA (cerebral infarction) Afib Social History marital status: Smoking Status: Former smoker alcohol intake: never substance use type: does not use Smoking Status: Former smoker alcohol intake frequency: holidays/special occasions only Substance Use Type: does not use Exam <Justin Solis PA-C - Last Filed: 10/08/23 18:04> Narrative Exam Narrative: Const General:?cooperative, healthy appearing and comfortable [facility] Head:?normal to inspection Ears:?hearing grossly normal bilaterally Nose:?external nose normal Face and sinus:?normal facial exam and sinuses nontender Mouth:?oral mucosae normal Throat:?posterior oropharynx normal Eyes General:?appearance normal, both eyes and all related structures Neck Neck:?normal visual inspection and no lymphadenopathy noted Resp Effort & Inspection:?normal respiratory effort Auscultation:?clear to auscultation bilaterally Cardio Rate:?regular rate Rhythm:?regular rhythm Musculoskeletal There is significant erythema of all toes of the right foot. There is a ulcer on the medial aspect of the big toe. Pedal pulses intact. Neuro General:?patient alert, patient awake and patient oriented x3 Initial Vital Signs Initial Vital Signs: Vital Signs Temperature 97.1 F L 10/08/23 10:42 Pulse Rate 65 10/08/23 10:42 Respiratory Rate 15 10/08/23 10:42 Blood Pressure 149/75 H 10/08/23 10:42 Pulse Oximetry 98 10/08/23 10:42 Oxygen Delivery Method Room Air 10/08/23 10:42 <Lorna Baker DO - Last Filed: 10/10/23 07:15> Initial Vital Signs Initial Vital Signs: Vital Signs Temperature 97.1 F L 10/08/23 10:42 Pulse Rate 65 10/08/23 10:42 Respiratory Rate 15 10/08/23 10:42 Blood Pressure 149/75 H 10/08/23 10:42 Pulse Oximetry 98 10/08/23 10:42 Oxygen Delivery Method Room Air 10/08/23 10:42 Course <Justin Solis PA-C - Last Filed: 10/08/23 18:04> Orders Ordered: Discontinued Medications Ciprofloxacin (Ciprofloxacin 250 Mg Tablet) 750 mg PO NOW ONE Stop: 10/08/23 17:18 Last Admin: 10/08/23 17:27 Dose: 750 mg Documented By: MATT Clindamycin HCl (Clindamycin 150 Mg Capsule) 450 mg PO NOW ONE Stop: 10/08/23 17:18 Last Admin: 10/08/23 17:27 Dose: 450 mg Documented By: MATT Sodium Chloride (Normal Saline 0.9%) 1,000 mls @ 1,000 mls/hr IV BOLUS ONE Stop: 10/08/23 14:08 Last Infusion: 10/08/23 14:25 Dose: Infused Documented By: Admin: 10/08/23 13:25 Dose: 1,000 mls/hr Documented By: MATT Sodium Chloride (Normal Saline 0.9%) 1,000 mls @ 1,000 mls/hr IV BOLUS ONE Stop: 10/08/23 15:22 Last Infusion: 10/08/23 15:28 Dose: Infused Documented By: Admin: 10/08/23 14:53 Dose: 1,000 mls/hr Documented By: MATT Oxycodone/Acetaminophen (Oxycodone/Acetaminophen 5/325 Tablet) 1 tab PO NOW ONE Stop: 10/08/23 11:54 Last Admin: 10/08/23 12:04 Dose: 1 tab Documented By: MATT Oxycodone/Acetaminophen (Oxycodone/Acetaminophen 5/325 Tablet) 1 tab PO NOW ONE Stop: 10/08/23 17:30 Last Admin: 10/08/23 17:32 Dose: 1 tab Documented By: MATT Vital Signs Vital signs: Vital Signs - 8 hr 10/08/23 10:42 10/08/23 17:14 Temperature 97.1 F L Pulse Rate 65 63 Respiratory Rate 15 16 Blood Pressure 149/75 H 153/67 H Pulse Oximetry 98 97 Oxygen Delivery Method Room Air Room Air <Lorna Baker DO - Last Filed: 10/10/23 07:15> Orders Ordered: Discontinued Medications Ciprofloxacin (Ciprofloxacin 250 Mg Tablet) 750 mg PO NOW ONE Stop: 10/08/23 17:18 Last Admin: 10/08/23 17:27 Dose: 750 mg Documented By: MATT Clindamycin HCl (Clindamycin 150 Mg Capsule) 450 mg PO NOW ONE Stop: 10/08/23 17:18 Last Admin: 10/08/23 17:27 Dose: 450 mg Documented By: MATT Sodium Chloride (Normal Saline 0.9%) 1,000 mls @ 1,000 mls/hr IV BOLUS ONE Stop: 10/08/23 14:08 Last Infusion: 10/08/23 14:25 Dose: Infused Documented By: Admin: 10/08/23 13:25 Dose: 1,000 mls/hr Documented By: MATT Sodium Chloride (Normal Saline 0.9%) 1,000 mls @ 1,000 mls/hr IV BOLUS ONE Stop: 10/08/23 15:22 Last Infusion: 10/08/23 15:28 Dose: Infused Documented By: Admin: 10/08/23 14:53 Dose: 1,000 mls/hr Documented By: MATT Oxycodone/Acetaminophen (Oxycodone/Acetaminophen 5/325 Tablet) 1 tab PO NOW ONE Stop: 10/08/23 11:54 Last Admin: 10/08/23 12:04 Dose: 1 tab Documented By: MATT Oxycodone/Acetaminophen (Oxycodone/Acetaminophen 5/325 Tablet) 1 tab PO NOW ONE Stop: 10/08/23 17:30 Last Admin: 10/08/23 17:32 Dose: 1 tab Documented By: MATT Vital Signs Vital signs: Vital Signs - 8 hr 10/08/23 10:42 10/08/23 17:14 Temperature 97.1 F L Pulse Rate 65 63 Respiratory Rate 15 16 Blood Pressure 149/75 H 153/67 H Pulse Oximetry 98 97 Oxygen Delivery Method Room Air Room Air MDM - Extremity (Nontraumatic) <Justin Solis PA-C - Last Filed: 10/08/23 18:04> Lab Data 10/08/23 15:32 10/08/23 15:32 Labs: Lab Results 10/08/23 10/08/23 10/08/23 Range/Units 12:19 15:32 15:40 WBC 12.6 H 10.3 (4.5-11.0) X10^3/uL RBC 3.42 L 2.89 L (4.0-5.2) X10^6/uL Hgb 11.0 L 9.6 L (12.0-16.0) g/dL Hct 32.4 L 27.3 L (36-46) % MCV 94.6 94.3 (80-100) fL MCH 32.2 33.1 (26-34) PG MCHC 34.1 35.1 (30-36) % RDW 13.5 13.0 (11.6-14.8) % Plt Count 308 245 (150-400) X10^3/uL Neut % (Auto) 73.9 71.4 (50-75) % Lymph % (Auto) 14.1 L 17.0 L (25-40) % [place] % (Auto) 8.9 8.9 (3-14) % Eos % (Auto) 2.2 1.9 L (2-4) % Baso % (Auto) 0.9 0.8 (0-2) % Neut # (Auto) 9300 H 7400 H (1762-3929) /uL Lymph # (Auto) 1800 1800 (8419-9686) /uL [place] # (Auto) 1100 H 900 (0-900) /uL Eos # (Auto) 300 200 (0-450) /uL Baso # (Auto) 100 100 (0-100) /uL ESR 68 H (0-20) MM/HR Sodium 137 139 (137-145) mmol/L Potassium 5.0 4.6 (3.4-5.1) mmol/L Chloride 107 110 H (98-107) mmol/L Carbon Dioxide 22 22 (22-32) mmol/L BUN 55 H 52 H (7-17) mg/dL Creatinine 2.53 H 2.23 H (0.52-1.04) mg/dL Estimated GFR 19 L 22 L (>60) mL/min BUN/Creatinine Ratio 21.7 23.3 H (6-22) Glucose 124 H 104 (80-110) mg/dL Uric Acid 7.3 H (2.5-6.2) mg/dL Calcium 11.3 H 9.8 (8.4-10.2) mg/dL Total Bilirubin 0.5 0.5 (0.2-1.3) mg/dL AST 24 42 H (14-36) IU/L ALT 25 34 (<35) IU/L Alkaline Phosphatase 57 55 (38-126) U/L C-Reactive Protein < 0.5 (<1.0) mg/dL Total Protein 7.6 6.4 (6.3-8.2) g/dL Albumin 4.4 3.6 (3.5-5.0) g/dL Globulin 3.2 2.8 (1.7-4.1) g/dL Albumin/Globulin Ratio 1.4 1.3 (1.0-2.8) Procalcitonin 0.130 (<0.5) ng/mL Urine RBC (0-5/HPF) Urine WBC (0-5/HPF) Ur Squamous Epith Cells (0-5/HPF) Amorphous Sediment Urine Bacteria (None) Ur Culture Indicated? Vol Urine Centrifuged 10/08/23 Range/Units 16:00 WBC (4.5-11.0) X10^3/uL RBC (4.0-5.2) X10^6/uL Hgb (12.0-16.0) g/dL Hct (36-46) % MCV (80-100) fL MCH (26-34) PG MCHC (30-36) % RDW (11.6-14.8) % Plt Count (150-400) X10^3/uL Neut % (Auto) (50-75) % Lymph % (Auto) (25-40) % [place] % (Auto) (3-14) % Eos % (Auto) (2-4) % Baso % (Auto) (0-2) % Neut # (Auto) (2944-3846) /uL Lymph # (Auto) (2986-4932) /uL [place] # (Auto) (0-900) /uL Eos # (Auto) (0-450) /uL Baso # (Auto) (0-100) /uL ESR (0-20) MM/HR Sodium (137-145) mmol/L Potassium (3.4-5.1) mmol/L Chloride (98-107) mmol/L Carbon Dioxide (22-32) mmol/L BUN (7-17) mg/dL Creatinine (0.52-1.04) mg/dL Estimated GFR (>60) mL/min BUN/Creatinine Ratio (6-22) Glucose (80-110) mg/dL Uric Acid (2.5-6.2) mg/dL Calcium (8.4-10.2) mg/dL Total Bilirubin (0.2-1.3) mg/dL AST (14-36) IU/L ALT (<35) IU/L Alkaline Phosphatase (38-126) U/L C-Reactive Protein (<1.0) mg/dL Total Protein (6.3-8.2) g/dL Albumin (3.5-5.0) g/dL Globulin (1.7-4.1) g/dL Albumin/Globulin Ratio (1.0-2.8) Procalcitonin (<0.5) ng/mL Urine RBC None seen (0-5/HPF) Urine WBC 5-10/hpf H (0-5/HPF) Ur Squamous Epith Cells None seen (0-5/HPF) Amorphous Sediment 1+ Urine Bacteria Occasional (0-1) (None) Ur Culture Indicated? Specimen cultured Vol Urine Centrifuged 10ml (spun) Urine Dip Bedside Urine Glucose Negative Bedside Urine Bilirubin - Negative Bedside Urine Ketone - Negative Urine Specific [place] 1.015 Bedside Urine Occult Blood - Negative Bedside Urine pH 5.5 Bedside Urine Protein - Negative Bedside Urine Urobilinogen - Negative Bedside Urine Nitrite - Negative Bedside Urine Leukocytes +++ 500 Esterase MDM Narrative Medical decision making narrative: 83-year-old female with past medical history diabetes, hyperlipidemia, hypertension, CKD, former smoker, peripheral artery disease, diabetic neuropathy presents to the ED with worsening right foot pain since awakening this morning. Concern for peripheral arterial disease versus cellulitis versus osteomyelitis versus fracture/dislocation versus other. Will obtain x-ray, labs, ESR, CRP, procalcitonin. Will give Percocet for pain. Will reassess. X-ray without acute findings. ESR elevated to 68. CRP within normal limits. WBC within normal limits. Patient appears to have an CEDRIC versus CKD with creatinine at 2.53, GFR 19, BUN 55. This is a significant decline in kidney function since April 2023. Recent artery scan of the lower extremities shows peripheral arterial disease. UA is positive for UTI today. Patient does not have a history of gout and presentation is not most consistent with gout either. Will obtain uric acid. Given that patient improved with clindamycin a month ago, will treat as cellulitis. Will Start on antibiotics. Prescribed pain meds. Consulted [facility] PCP Dr. Betancourt, who is in agreement with the plan. Dr. Betancourt will see the patient in the office at 8:30 a.m. on . Discussed findings and plan with patient and patient's daughter. Discussed ED return precautions with them. They verbalized understanding. Medical records reviewed: Yes <Lorna Baker, - Last Filed: 10/10/23 07:15> Lab Data Labs: Lab Results 10/08/23 10/08/23 10/08/23 Range/Units 12:19 15:32 15:40 WBC 12.6 H 10.3 (4.5-11.0) X10^3/uL RBC 3.42 L 2.89 L (4.0-5.2) X10^6/uL Hgb 11.0 L 9.6 L (12.0-16.0) g/dL Hct 32.4 L 27.3 L (36-46) % MCV 94.6 94.3 (80-100) fL MCH 32.2 33.1 (26-34) PG MCHC 34.1 35.1 (30-36) % RDW 13.5 13.0 (11.6-14.8) % Plt Count 308 245 (150-400) X10^3/uL Neut % (Auto) 73.9 71.4 (50-75) % Lymph % (Auto) 14.1 L 17.0 L (25-40) % [place] % (Auto) 8.9 8.9 (3-14) % Eos % (Auto) 2.2 1.9 L (2-4) % Baso % (Auto) 0.9 0.8 (0-2) % Neut # (Auto) 9300 H 7400 H (6670-6872) /uL Lymph # (Auto) 1800 1800 (8023-5606) /uL [place] # (Auto) 1100 H 900 (0-900) /uL Eos # (Auto) 300 200 (0-450) /uL Baso # (Auto) 100 100 (0-100) /uL ESR 68 H (0-20) MM/HR Sodium 137 139 (137-145) mmol/L Potassium 5.0 4.6 (3.4-5.1) mmol/L Chloride 107 110 H (98-107) mmol/L Carbon Dioxide 22 22 (22-32) mmol/L BUN 55 H 52 H (7-17) mg/dL Creatinine 2.53 H 2.23 H (0.52-1.04) mg/dL Estimated GFR 19 L 22 L (>60) mL/min BUN/Creatinine Ratio 21.7 23.3 H (6-22) Glucose 124 H 104 (80-110) mg/dL Uric Acid 7.3 H (2.5-6.2) mg/dL Calcium 11.3 H 9.8 (8.4-10.2) mg/dL Total Bilirubin 0.5 0.5 (0.2-1.3) mg/dL AST 24 42 H (14-36) IU/L ALT 25 34 (<35) IU/L Alkaline Phosphatase 57 55 (38-126) U/L C-Reactive Protein < 0.5 (<1.0) mg/dL Total Protein 7.6 6.4 (6.3-8.2) g/dL Albumin 4.4 3.6 (3.5-5.0) g/dL Globulin 3.2 2.8 (1.7-4.1) g/dL Albumin/Globulin Ratio 1.4 1.3 (1.0-2.8) Procalcitonin 0.130 (<0.5) ng/mL Urine RBC (0-5/HPF) Urine WBC (0-5/HPF) Ur Squamous Epith Cells (0-5/HPF) Amorphous Sediment Urine Bacteria (None) Ur Culture Indicated? Vol Urine Centrifuged 10/08/23 Range/Units 16:00 WBC (4.5-11.0) X10^3/uL RBC (4.0-5.2) X10^6/uL Hgb (12.0-16.0) g/dL Hct (36-46) % MCV (80-100) fL MCH (26-34) PG MCHC (30-36) % RDW (11.6-14.8) % Plt Count (150-400) X10^3/uL Neut % (Auto) (50-75) % Lymph % (Auto) (25-40) % [place] % (Auto) (3-14) % Eos % (Auto) (2-4) % Baso % (Auto) (0-2) % Neut # (Auto) (9693-1077) /uL Lymph # (Auto) (4352-9928) /uL [place] # (Auto) (0-900) /uL Eos # (Auto) (0-450) /uL Baso # (Auto) (0-100) /uL ESR (0-20) MM/HR Sodium (137-145) mmol/L Potassium (3.4-5.1) mmol/L Chloride (98-107) mmol/L Carbon Dioxide (22-32) mmol/L BUN (7-17) mg/dL Creatinine (0.52-1.04) mg/dL Estimated GFR (>60) mL/min BUN/Creatinine Ratio (6-22) Glucose (80-110) mg/dL Uric Acid (2.5-6.2) mg/dL Calcium (8.4-10.2) mg/dL Total Bilirubin (0.2-1.3) mg/dL AST (14-36) IU/L ALT (<35) IU/L Alkaline Phosphatase (38-126) U/L C-Reactive Protein (<1.0) mg/dL Total Protein (6.3-8.2) g/dL Albumin (3.5-5.0) g/dL Globulin (1.7-4.1) g/dL Albumin/Globulin Ratio (1.0-2.8) Procalcitonin (<0.5) ng/mL Urine RBC None seen (0-5/HPF) Urine WBC 5-10/hpf H (0-5/HPF) Ur Squamous Epith Cells None seen (0-5/HPF) Amorphous Sediment 1+ Urine Bacteria Occasional (0-1) (None) Ur Culture Indicated? Specimen cultured Vol Urine Centrifuged 10ml (spun) Urine Dip Bedside Urine Glucose Negative Bedside Urine Bilirubin - Negative Bedside Urine Ketone - Negative Urine Specific [place] 1.015 Bedside Urine Occult Blood - Negative Bedside Urine pH 5.5 Bedside Urine Protein - Negative Bedside Urine Urobilinogen - Negative Bedside Urine Nitrite - Negative Bedside Urine Leukocytes +++ 500 Esterase Discharge Plan Departure Patient Disposition: Home Clinical Impression: CEDRIC (acute kidney injury) Cellulitis Qualifiers: Site of cellulitis: extremity Site of cellulitis of extremity: toe Laterality: right Qualified Code(s): L03.031 - Cellulitis of right toe UTI (urinary tract infection) Qualifiers: Urinary tract infection type: acute cystitis Hematuria presence: without hematuria Qualified Code(s): N30.00 - Acute cystitis without hematuria Instructions: DI for Cellulitis -- Adult, DI for Urinary Tract Infection (UTI) Activity Restrictions/Additional Instructions: You were evaluated in the ED today for foot pain. Your x-ray was normal. Your workup did show that you have a urinary tract infection, decline in kidney function. It also appears that you have an infection in the right foot that is causing your symptoms. You are being prescribed 2 antibiotics to take for 14 days. You were also being prescribed some pain medication for the next 2 days. Please note that this medication might make you sleepy so please use good fall precautions. Please continue to stay well hydrated. Your PCP Dr. Betancourt was consulted, he is aware of your visit and agrees with our treatment. He will see you in the office at 8:30 a.m. on morning. In the meanwhile, please return to the ED if you note worsening symptoms. Prescriptions: New clindamycin HCl 150 mg capsule 450 mg PO Q8H 14 Days Qty: 126 0RF ciprofloxacin HCl 750 mg tablet 750 mg PO Q12H 14 Days Qty: 28 0RF No Action (DME) Blood Glucose Test Strip See Dose Instructions .ROUTE .MEDSUPPLY Qty: 200 6RF Dose Instruction: As directed Rx Instructions: use to check blood sugar twice a day (DME) lancets 31 gauge misc See Dose Instructions .ROUTE .MEDSUPPLY Qty: 100 3RF Dose Instruction: As directed Rx Instructions: use to check blood sugar twice a day (DME) Disabled Parking See Rx Instructions .ROUTE .MEDSUPPLY Qty: 1 0RF Rx Instructions: I find this patient to be medically disabled and qualified for Disabled Parking as indicated, and signed, on the Accompanying Disabled Parking Application for Individuals VITAMIN D 400 iu PO Q DAY Qty: 0 magnesium oxide 400 MG tablet 400 mg PO QDAY Qty: 0 (DME) lancing device [lancing device with lancets] [facility] [place] See Dose Instructions .ROUTE .MEDSUPPLY Qty: 1 0RF Dose Instruction: As directed Rx Instructions: use to check blood sugar twice a day (DME) pen needle, diabetic [Comfort EZ Pen Diamond] 31 gauge x 3/16 needle See Dose Instructions .ROUTE .MEDSUPPLY Qty: 100 3RF Dose Instruction: As directed Rx Instructions: For insulin injection daily albuterol sulfate 90 mcg/actuation HFA aerosol inhaler 2 puff PO Q6H PRN (Reason: for wheezing) Qty: 21 11RF amlodipine 5 mg tablet See Rx Instructions .ROUTE .COMPLEX Qty: 90 3RF Dose Instruction: Take 1 tablet by mouth once daily Rx Instructions: Take 1 tablet by mouth once daily atorvastatin [Lipitor] 20 mg tablet 20 mg PO BEDTIME Qty: 90 3RF Lantus Solostar U-100 Insulin 100 unit/mL (3 mL) insulin pen 50 unit SUBCUT DAILY Qty: 15 5RF lisinopril-hydrochlorothiazide 20-12.5 mg tablet See Rx Instructions .ROUTE .COMPLEX Qty: 180 3RF Dose Instruction: Take 1 tablet by mouth twice daily Rx Instructions: Take 1 tablet by mouth twice daily metoprolol succinate 50 mg tablet extended release 24 hr See Rx Instructions .ROUTE .COMPLEX Qty: 90 3RF Dose Instruction: Take 1 tablet by mouth once daily Rx Instructions: Take 1 tablet by mouth once daily glipizide 5 mg tablet 5 mg PO DAILY Qty: 90 3RF Referrals: Ramón Betancourt MD [Primary Care Provider] - Stand Alone Forms: Patient Portal/API ED Sign-out <Lorna Baker DO - Last Filed: 10/10/23 07:15> Cosign ED Attending Cosignature Attestation: I was immediately available in the department for consultation. Case was discussed, results were reviewed. Discussed inpatient versus short term follow up home. Discussed with patient's primary care your team who also does not admission and they follow up urgently.
--- NOTE | 2023-10-08 12:00 | DI.RAD.S_ITS ---
PROCEDURE: XR FOOT RT MIN 3V INDICATIONS: foot pain TECHNIQUE: 3 views of the foot were acquired. COMPARISON: , , XR FOOT RT MIN 3V, 08/19/2023, 14:44. FINDINGS: Bones: No fractures or dislocations. Osteoarthritic changes are noted throughout right foot joints. No suspicious bony lesions. Soft tissues: No tibiotalar joint effusion. Achilles tendon appears normal. IMPRESSION: No acute right foot fracture or dislocation. Right foot joint osteoarthritis. Dictated by: Tye Camacho M.D. on 10/08/2023 at 13:47 Approved by: Tye Camacho M.D. on 10/08/2023 at 13:50
[2023-10-08] MEDS: OXYCODONE/ACETAMINOPHEN 5/325 TABLET 1 TAB PO ×2 (12:04→17:32)
[2023-10-08 12:28] LABS: Add Manual Diff / Slide Review NO; Basophils Absolute Auto 100 /uL (0-100); Basophils Percent Auto 0.9 % (0-2); Eosinophils Absolute Auto 300 /uL (0-450); Eosinophils Percent Auto 2.2 % (2-4); Hematocrit 32.4 % (36-46); Lymphocytes Absolute Auto 1800 /uL (1100-4500); Lymphocytes Percent Auto 14.1 % (25-40); Mean Corpuscular HGB Conc 34.1 % (30-36); Mean Corpuscular Hemoglobin 32.2 PG (26-34); Mean Corpuscular Volume 94.6 fL (80-100); Monocytes Absolute Auto 1100 /uL (0-900); Monocytes Percent Auto 8.9 % (3-14); Neutrophils Absolute Auto 9300 /uL (1500-7000); Neutrophils Percent Auto 73.9 % (50-75); Platelet Count 308 X10^3/uL (150-400); Red Blood Cell Count 3.42 X10^6/uL (4.0-5.2); Red Cell Distribution Width 13.5 % (11.6-14.8); White Blood Cell Count 12.6 X10^3/uL (4.5-11.0)
[2023-10-08 12:47] LABS: Erythrocyte Sedimentation Rate 68 MM/HR (0-20)
[2023-10-08 12:51] LABS: Alanine Aminotransferase 25 IU/L (<35); Albumin 4.4 g/dL (3.5-5.0); Albumin Globulin Ratio 1.4 (1.0-2.8); Alkaline Phosphatase 57 U/L (38-126); Aspartate Aminotransferase 24 IU/L (14-36); BUN Creatinine Ratio 21.7 (6-22); Bilirubin Total 0.5 mg/dL (0.2-1.3); Blood Urea Nitrogen 55 mg/dL (7-17); C-Reactive Protein Quant < 0.5 mg/dL (<1.0); Calcium 11.3 mg/dL (8.4-10.2); Carbon Dioxide 22 mmol/L (22-32); Chloride 107 mmol/L (98-107); Estimated Glomerular Filt Rate 19 mL/min (>60); Globulin 3.2 g/dL (1.7-4.1); Glucose 124 mg/dL (80-110); HEMOLYSIS < 15 (0-50); Sodium 137 mmol/L (137-145); Total Protein 7.6 g/dL (6.3-8.2)
[2023-10-08] MEDS: SODIUM CHLORIDE 0.9% 1,000 ML 1000 ML IV ×2 (13:25→14:53)
[2023-10-08 15:44] LABS: Add Manual Diff / Slide Review NO; Basophils Absolute Auto 100 /uL (0-100); Basophils Percent Auto 0.8 % (0-2); Eosinophils Absolute Auto 200 /uL (0-450); Eosinophils Percent Auto 1.9 % (2-4); Hematocrit 27.3 % (36-46); Hemoglobin 9.6 g/dL (12.0-16.0); Lymphocytes Absolute Auto 1800 /uL (1100-4500); Mean Corpuscular HGB Conc 35.1 % (30-36); Mean Corpuscular Hemoglobin 33.1 PG (26-34); Mean Corpuscular Volume 94.3 fL (80-100); Monocytes Absolute Auto 900 /uL (0-900); Monocytes Percent Auto 8.9 % (3-14); Neutrophils Absolute Auto 7400 /uL (1500-7000); Neutrophils Percent Auto 71.4 % (50-75); Platelet Count 245 X10^3/uL (150-400); Red Blood Cell Count 2.89 X10^6/uL (4.0-5.2); White Blood Cell Count 10.3 X10^3/uL (4.5-11.0)
[2023-10-08 15:57] LABS: Alanine Aminotransferase 34 IU/L (<35); Albumin 3.6 g/dL (3.5-5.0); Albumin Globulin Ratio 1.3 (1.0-2.8); Alkaline Phosphatase 55 U/L (38-126); Aspartate Aminotransferase 42 IU/L (14-36); BUN Creatinine Ratio 23.3 (6-22); Bilirubin Total 0.5 mg/dL (0.2-1.3); Blood Urea Nitrogen 52 mg/dL (7-17); Calcium 9.8 mg/dL (8.4-10.2); Carbon Dioxide 22 mmol/L (22-32); Chloride 110 mmol/L (98-107); Estimated Glomerular Filt Rate 22 mL/min (>60); Globulin 2.8 g/dL (1.7-4.1); Glucose 104 mg/dL (80-110); HEMOLYSIS < 15 (0-50); Potassium 4.6 mmol/L (3.4-5.1); Sodium 139 mmol/L (137-145); Total Protein 6.4 g/dL (6.3-8.2)
[2023-10-08 16:25] LABS: Amorphous Sediment Urine 1+; Bacteria Urine Occasional (0-1); Culture Indicated Urine Specimen Cultured; RBC Urine None Seen (0-5/HPF); Squamous Epithelial Cell Urine None Seen (0-5/HPF); Urine Volume 10mL (spun); WBC Urine 5-10/HPF (0-5/HPF)
[2023-10-08 17:14] VITALS: BP 153/67; PULSE 63; RESP 16; O2SAT 97
[2023-10-08] MEDS: CLINDAMYCIN 150 MG CAPSULE 450 MG PO (17:27)
[2023-10-08] MEDS: CIPROFLOXACIN 250 MG TABLET 750 MG PO (17:27)
[2023-10-08 17:29] LABS: Uric Acid 7.3 mg/dL (2.5-6.2)
== END 2023-10-08 17:40 | disposition home or self-care (01) ==
PROVIDERS: Emergency Provider Student in an Organized Health Care Education/Training Program; PCP Family Medicine
DX: L03.031 Cellulitis of right toe (principal); N30.00 Acute cystitis without hematuria; N17.9 Acute kidney failure, unspecified
CPT/HCPCS: 36415; 73630; 80053; 81003; 81015; 84145; 84550; 85025; 85651; 86140; 87077; 87086; 87186; 96360; 96361; 99284

== ENCOUNTER → 2023-10-23 10:07 | Outpatient (CLI) | payer MEDICARE, SELFPAY ==
[2023-10-23 12:41] LABS: Appearance Urine UA CLEAR; Bilirubin Urine UA NEGATIVE (NEGATIVE); Color Urine UA YELLOW; Glucose Urine UA TRACE g/dL (Negative); Ketones Urine UA NEGATIVE (NEGATIVE); Leukocyte Esterase Urine UA NEGATIVE (NEGATIVE); Nitrite Urine UA NEGATIVE (Negative); Occult Blood Urine UA NEGATIVE (Negative); Protein Urine UA NEGATIVE (Negative); Specific Gravity Urine UA <=1.005 (1.000-1.035); Urobilinogen Urine UA 0.2 E.U./dL (0.2)
[2023-10-23 12:45] LABS: pH Urine UA 5.5 (4.5-8.0)
[2023-10-23 12:55] LABS: Bacteria Urine Occasional (0-1); Culture Indicated Urine Cult Not Indicated; RBC Urine 0-1/HPF (0-5/HPF); Squamous Epithelial Cell Urine 0-1 /HPF (0-5/HPF); Urine Volume 10mL (spun); WBC Urine 0-1/HPF (0-5/HPF)
== END ==
PROVIDERS: PCP Family Medicine; Referring Provider Family Medicine; Visit Provider Family Medicine
DX: N30.00 Acute cystitis without hematuria (principal)
CPT/HCPCS: 81001

== ENCOUNTER → 2023-11-12 08:28 | Outpatient (CLI) | payer MEDICARE, SELFPAY ==
[2023-11-12 09:56] LABS: Add Manual Diff / Slide Review NO; Basophils Absolute Auto 100 /uL (0-100); Basophils Percent Auto 1.4 % (0-2); Eosinophils Absolute Auto 300 /uL (0-450); Eosinophils Percent Auto 3.4 % (2-4); Hematocrit 32.6 % (36-46); Hemoglobin 11.2 g/dL (12.0-16.0); Lymphocytes Absolute Auto 1800 /uL (1100-4500); Lymphocytes Percent Auto 17.4 % (25-40); Mean Corpuscular HGB Conc 34.2 % (30-36); Mean Corpuscular Hemoglobin 32.1 PG (26-34); Mean Corpuscular Volume 93.8 fL (80-100); Monocytes Absolute Auto 1000 /uL (0-900); Neutrophils Absolute Auto 6900 /uL (1500-7000); Neutrophils Percent Auto 67.8 % (50-75); Platelet Count 328 X10^3/uL (150-400); Red Blood Cell Count 3.47 X10^6/uL (4.0-5.2); Red Cell Distribution Width 13.1 % (11.6-14.8); White Blood Cell Count 10.2 X10^3/uL (4.5-11.0)
[2023-11-12 10:28] LABS: Cholesterol 121 mg/dL (140-199); HDL Cholesterol 39 mg/dL (40-60); LDL Cholesterol Calculated 50 mg/dL (<100); Triglycerides 159 mg/dL (35-150)
[2023-11-12 10:56] LABS: TSH w/ Reflex to FT4 3.67 uIU/mL (0.47-4.68)
[2023-11-12 11:48] LABS: Hemoglobin A1C% w Est Avg Glu 7.5 % (4.0-6.0)
== END ==
PROVIDERS: PCP Family Medicine; Referring Provider Family Medicine; Visit Provider Family Medicine
DX: E11.22 Type 2 diabetes mellitus with diabetic chronic kidney disease (principal); N18.30 Chronic kidney disease, stage 3 unspecified; E78.5 Hyperlipidemia, unspecified
CPT/HCPCS: 36415; 80061; 83036; 84443; 85025

== ENCOUNTER 2024-04-17 12:01 | Emergency (ER) | payer MEDICARE, SELFPAY ==
[2024-04-17] VITALS (15 sets, daily range): BP systolic 116–155; BP diastolic 72–94; PULSE 81–144; RESP 16–36; TEMP 37.1; O2SAT 95–98; BMI 27.4
--- NOTE | 2024-04-17 12:26 | EKG_ITS ---
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
--- NOTE | 2024-04-17 12:40 | ED.GENADULT ---
HPI - General Adult General Chief complaint: Urogenital-Female Stated complaint: thinks her kidney stopped Time Seen by Provider: 04/17/24 12:40 Mode of arrival: Wheelchair History of Present Illness HPI narrative: 84-year-old female with history of coronary artery disease, complains of left scapular area discomfort, and left superior trapezius area discomfort, worse with head and truncal and left arm movements, since yesterday. She also complains of decreased urine output, concerned about her kidney functions. No fevers or chills. No cough, no shortness of breath. She had right femoral bypass vascular surgery at [facility] about two months ago per at bedside. Related Data Home Medications Medication Instructions Recorded Confirmed VITAMIN D 400 iu PO Q DAY ##0 01/11/11 02/20/24 magnesium oxide 400 mg (241.3 mg 400 mg PO QDAY ##0 07/19/16 02/20/24 magnesium) tablet atorvastatin 40 mg tablet 40 mg PO BEDTIME 11/14/23 02/20/24 Previous Rx's Medication Instructions Recorded lancing device (lancing device #1 ea 11/13/17 with lancets) blood sugar diagnostic (Blood #200 ea 03/11/19 Glucose Test strips) lancets 31 gauge #100 ea 03/11/19 pen needle, diabetic 31 gauge x #100 ea 03/22/2007/12 (Comfort EZ Pen [place]) Disabled Parking #1 ea 05/17/22 amlodipine 5 mg tablet See Rx Instructions .Route 05/20/23 .COMPLEX #90 tabs metoprolol succinate 50 mg See Rx Instructions .Route 05/20/23 tablet,extended release 24 hr .COMPLEX #90 tabs albuterol sulfate 90 mcg/actuation 2 puff PO Q6H PRN for wheezing #21 07/16/23 aerosol inhaler ea Lantus Solostar U-100 Insulin 100 50 unit (0.5 mL) SUBCUT DAILY #15 12/13/23 unit/mL (3 mL) subcutaneous pen mL (insulin glargine) methocarbamol 500 mg tablet 500 mg PO TID 7 days #21 tabs 04/17/24 Allergies Allergy/AdvReac Type Severity Reaction Status Date / Time Penicillins [PENICILLINS] Allergy Severe SOB Verified 04/17/24 12:05 adhesive [ADHESIVE] Allergy Mild localized Verified 04/17/24 12:05 rash cephalexin [CEPHALEXIN] Allergy Mild rash Verified 04/17/24 12:05 Sulfa (Sulfonamide Allergy Mild rash Verified 04/17/24 12:05 Antibiotics) [SULFA (SULFONAMIDE ANTIBIOTICS)] semaglutide AdvReac Intermediate Nausea; Verified 04/17/24 12:05 abdominal discomfort Patient History Medical History Tendonitis of finger COPD (chronic obstructive pulmonary disease) Osteopenia Diabetes mellitus Hypertension Hyperlipidemia Surgical History History of breast biopsy History of cataract removal with insertion of prosthetic lens Status post cholecystectomy Family History Mother Congestive heart failure CVA (cerebral infarction) Afib Social History marital status: Smoking Status: Former smoker alcohol intake: never substance use type: does not use Smoking Status: Former smoker alcohol intake frequency: holidays/special occasions only Exam Narrative Exam Narrative: GENERAL: Well-developed patient, in mild distress. HEAD: Atraumatic. Normocephalic. EYES: Pupils equal round and reactive. Extraocular motions intact. No scleral icterus. No injection or drainage. ENT: Nose without bleeding, purulent drainage. Throat without erythema, tonsillar hypertrophy or exudate. Airway patent. NECK: Trachea midline. Non tender CARDIOVASCULAR: Regular rate and rhythm without murmurs, gallops, or rubs. RESPIRATORY: Clear to auscultation. Breath sounds equal bilaterally. No wheezes, rales, or rhonchi. GASTROINTESTINAL: Abdomen soft, non-tender, nondistended. EXTREMITIES: Some tenderness to the left upper trapezius, left superior rhomboid, more so than left inferior rhomboid, no skin changes or bruising or vesicles or rash BACK: Nontender without deformity or crepitance. No flank tenderness. NEURO: AOx3. Motor functions grossly nonfocal SKIN: No rash or erythema of visible areas Initial Vital Signs Initial Vital Signs: Vital Signs Temperature 98.8 F 04/17/24 12:05 Pulse Rate 113 H 04/17/24 12:05 Respiratory Rate 19 04/17/24 12:05 Blood Pressure 136/76 04/17/24 12:05 Pulse Oximetry 98 04/17/24 12:05 Oxygen Delivery Method Room Air 04/17/24 12:05 Course Orders Ordered: ED Orders 04/17/24 12:26 EKG-12 Lead Stat 04/17/24 12:35 Complete Blood Count AUTO DIFF Stat Comprehensive Metabolic Panel Stat Troponin I Stat 04/17/24 14:30 Troponin I Stat 04/17/24 15:04 XR chest 1V Stat 04/17/24 17:24 PTT Partial Thromboplastin Ronnie Q6H 04/17/24 21:30 PTT Partial Thromboplastin Ronnie Q6H Discontinued Medications Aspirin (Aspirin Ec 325 Mg Tablet) 325 mg PO NOW ONE Stop: 04/17/24 15:43 Last Admin: 04/17/24 15:51 Dose: 325 mg Documented By: ENZO Heparin Sodium (Porcine) (Heparin 5,000 Unit/Ml Vial) 4,200 unit IV NOW ONE Stop: 04/17/24 18:16 Last Admin: 04/17/24 18:11 Dose: 4,200 unit Documented By: ENZO Heparin Sodium/Dextrose (Heparin Drip) 25,000 unit in 500 mls @ 16.874 mls/hr IV CONT VANDANA; Protocol Last Titration: 04/17/24 18:15 Dose: 12 units/kg/hr, 16.874 mls/hr Documented By: ENZO Co-signed By: MCKENZIE Admin: 04/17/24 18:10 Dose: 12 units/kg/hr, 16.874 mls/hr Documented By: ENZO Co-signed By: MCKENZIE Methocarbamol (Methocarbamol 500 Mg Tablet) 500 mg PO NOW ONE Stop: 04/17/24 14:09 Last Admin: 04/17/24 14:16 Dose: 500 mg Documented By: ENZO Metoprolol Tartrate (Metoprolol Tartrate 5 Mg/5 Ml Inj) 5 mg IV NOW ONE Stop: 04/17/24 12:45 Last Admin: 04/17/24 13:16 Dose: 5 mg Documented By: ENZO Morphine Sulfate (Morphine 4 Mg/Ml Inj) 4 mg IV NOW ONE Stop: 04/17/24 15:05 Last Admin: 04/17/24 18:46 Dose: Not Given Documented By: ENZO Vital Signs Vital signs: Vital Signs - 8 hr 04/17/24 12:05 04/17/24 12:16 04/17/24 12:16 Temperature 98.8 F Pulse Rate 113 H 144 H Respiratory Rate 19 Blood Pressure 136/76 116/75 Pulse Oximetry 98 95 Oxygen Delivery Method Room Air 04/17/24 12:30 04/17/24 12:30 04/17/24 13:00 Temperature Pulse Rate 107 H Respiratory Rate Blood Pressure 123/78 125/83 Pulse Oximetry Oxygen Delivery Method 04/17/24 13:00 04/17/24 13:30 04/17/24 13:30 Temperature Pulse Rate 113 H 81 Respiratory Rate 23 Blood Pressure 140/79 Pulse Oximetry 97 Oxygen Delivery Method 04/17/24 14:00 04/17/24 14:30 04/17/24 14:31 Temperature Pulse Rate 89 91 H 97 H Respiratory Rate 16 20 19 Blood Pressure Pulse Oximetry 95 96 96 Oxygen Delivery Method 04/17/24 14:31 04/17/24 15:00 04/17/24 15:00 Temperature Pulse Rate 87 Respiratory Rate 16 Blood Pressure 119/94 H 133/79 Pulse Oximetry 96 Oxygen Delivery Method 04/17/24 15:30 04/17/24 15:30 04/17/24 16:00 Temperature Pulse Rate 86 Respiratory Rate 20 Blood Pressure 129/74 151/72 H Pulse Oximetry 95 Oxygen Delivery Method 04/17/24 16:00 04/17/24 16:30 04/17/24 16:30 Temperature Pulse Rate 81 86 Respiratory Rate 25 H 20 Blood Pressure 155/72 H Pulse Oximetry 96 96 Oxygen Delivery Method 04/17/24 17:00 04/17/24 17:00 04/17/24 17:30 Temperature Pulse Rate 84 92 H Respiratory Rate 23 26 H Blood Pressure 154/83 H Pulse Oximetry 96 97 Oxygen Delivery Method 04/17/24 17:30 04/17/24 18:00 Temperature Pulse Rate 95 H Respiratory Rate 36 H Blood Pressure 142/91 H Pulse Oximetry 97 Oxygen Delivery Method Medical Decision Making Lab Data Lab results reviewed: Yes I reviewed the patient's lab results. Lab results narrative: White blood cell count 73607, hemoglobin 9.6, platelets [id number]. Sodium 134, potassium 4.1, BUN 25 with creatinine 1.8, glucose 150. Mild transaminase ALT/AST, T bili and alkaline phosphatase normal. 04/17/24 12:35 04/17/24 12:35 Labs: Lab Results 04/17/24 04/17/24 04/17/24 Range/Units 12:35 14:30 17:24 WBC 18.3 H (4.5-11.0) X10^3/uL RBC 3.62 L (4.0-5.2) X10^6/uL Hgb 9.6 L (12.0-16.0) g/dL Hct 29.6 L (36-46) % MCV 81.8 (80-100) fL MCH 26.6 (26-34) PG MCHC 32.5 (30-36) % RDW 16.7 H (11.6-14.8) % Plt Count 453 H (150-400) X10^3/uL Neut % (Auto) 84.3 H (50-75) % Lymph % (Auto) 5.6 L (25-40) % [place] % (Auto) 8.7 (3-14) % Eos % (Auto) 0.8 L (2-4) % Baso % (Auto) 0.6 (0-2) % Neut # (Auto) 15063 H (6847-3527) /uL Lymph # (Auto) 1000 L (1075-5418) /uL [place] # (Auto) 1600 H (0-900) /uL Eos # (Auto) 100 (0-450) /uL Baso # (Auto) 100 (0-100) /uL APTT 35 (25.1-36.5) SECONDS Sodium 134 L (137-145) mmol/L Potassium 4.1 (3.4-5.1) mmol/L Chloride 101 (98-107) mmol/L Carbon Dioxide 23 (22-32) mmol/L BUN 25 H (7-17) mg/dL Creatinine 1.85 H (0.52-1.04) mg/dL Estimated GFR 27 L (>60) mL/min BUN/Creatinine Ratio 13.5 (6-22) Glucose 150 H (80-110) mg/dL Calcium 10.3 H (8.4-10.2) mg/dL Total Bilirubin 0.5 (0.2-1.3) mg/dL AST 47 H (14-36) IU/L ALT 40 H (<35) IU/L Alkaline Phosphatase 98 (38-126) U/L Troponin I 2.400 H* 2.420 H* (0.01-0.034) ng/mL Total Protein 7.2 (6.3-8.2) g/dL Albumin 3.7 (3.5-5.0) g/dL Globulin 3.5 (1.7-4.1) g/dL Albumin/Globulin Ratio 1.1 (1.0-2.8) Imaging Data Chest x-ray: Radiologist's Impression: [address] [address] XRay Report Signed Patient: Desire Jenkins MR#: [id number] : 1940 Acct:[id number] Age/Sex: 84 / F Date of Service: 04/17/24 Loc: ED Accession Number: [id number] Procedure: XR chest 1V Ordering Provider: Rohan Meade MD PROCEDURE: XR CHEST 1V INDICATIONS: back scapular pain, elevated troponin TECHNIQUE: One view of the chest was acquired. COMPARISON: None. FINDINGS: Surgical changes and devices: None. Lungs and pleura: Lungs are slightly edematous. No pleural effusions or pneumothorax. Mediastinum: Mediastinal contours appear normal. Heart size is globally enlarged. Bones and chest wall: No suspicious bony lesions. Overlying soft tissues appear unremarkable. IMPRESSION: Slight pulmonary edema with global cardiomegaly, suspect mild acute CHF superimposed on chronic CHF. Dictated by: Hector Rollins M.D. on 04/17/2024 at 15:39 Approved by: Hector Rollins M.D. on 04/17/2024 at 15:40 ECG Data Attestation: I personally reviewed and interpreted this ECG as follows: Interpretation: Atrial flutter with variable AV block, ventricular response rate 120, right bundle branch block pattern noted. QRS 142, QTC 517. MDM Narrative Medical decision making narrative: 84-year-old female with recent right femoral artery bypass procedure Emily Castro last month, complains of left shoulder/trapezius area discomfort, also has concerns that she has not urinating as much, worried about her renal function. EKG shows atrial fibrillation, known ventricular response rate 120s, normotensive, metoprolol on her medication list, IV metoprolol dose. Some tenderness the left trapezius and rhomboid musculature, oral Robaxin. Pain significantly improved, declines IV morphine that was ordered for residual discomfort, now says that she is pain-free after the IV metoprolol dose and oral methocarbamol, better rate 80-110 range atrial fibrillation noted. Troponin added to her original blood draw Troponin 2.4 elevated, IV heparin bolus/infusion ordered, oral aspirin, advised transfer to cardiac catheterization lab capable facility, patient expresses understanding, will query Emily Castro where she was recently treated for peripheral artery surgical procedure Repeat troponin also elevated similar range. 1545, case discussed with Emily Castro metal fabricating inspector Dr Baird, agrees with need for transfer and further cardiac evaluation, agrees with aspirin and heparin for now. Await call back from hospitalist 1600, case discussed with Emily Castro hospitalist Dr. Vann, accepts patient for transfer Critical Care Time Critical Care Time Critical Care Time: Yes Total Critical Care Time: 35 Attestation: The high probability of a clinically significant, sudden or life threatening deterioration of the [cardiopulmonary, musculoskeletal] system(s) required my full and direct attention, intervention and personal management. The aggregate critical care time was [35] minutes. This time is in addition to time spent performing reported procedures but includes the following: [x] Data Review and interpretation [x] Patient assessment and monitoring of vital signs [x] Documentation [x] Medication orders and management Discharge Plan Departure Patient Disposition: [facility] Clinical Impression: Strain of left trapezius muscle, Rhomboid muscle strain, Non-ST elevated myocardial infarction (non-STEMI), History of atrial fibrillation Activity Restrictions/Additional Instructions: Left back area shoulder blade discomfort, no trauma recalled, on examination there is tenderness in the left superior trapezius muscle, and also the left superior rhomboid muscle, left inferior rhomboid musculature. Trial of muscle relaxant, oral Robaxin/methocarbamol given, prescription sent to your pharmacy. Recheck symptoms with your regular doctor early next week. Return to this/nearest emergency department for any change worsening symptoms or any concerns prior Prescriptions: New methocarbamol 500 mg tablet 500 mg PO TID 7 Days Qty: 21 0RF No Action (DME) Blood Glucose Test Strip See Dose Instructions .ROUTE .MEDSUPPLY Qty: 200 6RF Dose Instruction: As directed Rx Instructions: use to check blood sugar twice a day (DME) lancets 31 gauge misc See Dose Instructions .ROUTE .MEDSUPPLY Qty: 100 3RF Dose Instruction: As directed Rx Instructions: use to check blood sugar twice a day (DME) Disabled Parking See Rx Instructions .ROUTE .MEDSUPPLY Qty: 1 0RF Rx Instructions: I find this patient to be medically disabled and qualified for Disabled Parking as indicated, and signed, on the Accompanying Disabled Parking Application for Individuals VITAMIN D 400 iu PO Q DAY Qty: 0 magnesium oxide 400 MG tablet 400 mg PO QDAY Qty: 0 (DME) lancing device [lancing device with lancets] [facility] [place] See Dose Instructions .ROUTE .MEDSUPPLY Qty: 1 0RF Dose Instruction: As directed Rx Instructions: use to check blood sugar twice a day (DME) pen needle, diabetic [Comfort EZ Pen [place]] 31 gauge x 3/16 needle See Dose Instructions .ROUTE .MEDSUPPLY Qty: 100 3RF Dose Instruction: As directed Rx Instructions: For insulin injection daily albuterol sulfate 90 mcg/actuation HFA aerosol inhaler 2 puff PO Q6H PRN (Reason: for wheezing) Qty: 21 11RF Lantus Solostar U-100 Insulin 100 unit/mL (3 mL) insulin pen 50 unit SUBCUT DAILY Qty: 15 5RF amlodipine 5 mg tablet See Rx Instructions .ROUTE .COMPLEX Qty: 90 3RF Dose Instruction: Take 1 tablet by mouth once daily Rx Instructions: Take 1 tablet by mouth once daily metoprolol succinate 50 mg tablet extended release 24 hr See Rx Instructions .ROUTE .COMPLEX Qty: 90 3RF Dose Instruction: Take 1 tablet by mouth once daily Rx Instructions: Take 1 tablet by mouth once daily atorvastatin 40 mg tablet 40 mg PO BEDTIME Referrals: Ramón Betancourt MD [Primary Care Provider] -
[2024-04-17 12:47] LABS: Add Manual Diff / Slide Review NO; Basophils Absolute Auto 100 /uL (0-100); Basophils Percent Auto 0.6 % (0-2); Eosinophils Absolute Auto 100 /uL (0-450); Eosinophils Percent Auto 0.8 % (2-4); Hematocrit 29.6 % (36-46); Hemoglobin 9.6 g/dL (12.0-16.0); Lymphocytes Absolute Auto 1000 /uL (1100-4500); Lymphocytes Percent Auto 5.6 % (25-40); Mean Corpuscular HGB Conc 32.5 % (30-36); Mean Corpuscular Hemoglobin 26.6 PG (26-34); Mean Corpuscular Volume 81.8 fL (80-100); Monocytes Absolute Auto 1600 /uL (0-900); Monocytes Percent Auto 8.7 % (3-14); Neutrophils Absolute Auto 15400 /uL (1500-7000); Neutrophils Percent Auto 84.3 % (50-75); Platelet Count 453 X10^3/uL (150-400); Red Blood Cell Count 3.62 X10^6/uL (4.0-5.2); Red Cell Distribution Width 16.7 % (11.6-14.8); White Blood Cell Count 18.3 X10^3/uL (4.5-11.0)
[2024-04-17 12:56] LABS: Alanine Aminotransferase 40 IU/L (<35); Albumin 3.7 g/dL (3.5-5.0); Albumin Globulin Ratio 1.1 (1.0-2.8); Alkaline Phosphatase 98 U/L (38-126); Aspartate Aminotransferase 47 IU/L (14-36); BUN Creatinine Ratio 13.5 (6-22); Bilirubin Total 0.5 mg/dL (0.2-1.3); Blood Urea Nitrogen 25 mg/dL (7-17); Calcium 10.3 mg/dL (8.4-10.2); Carbon Dioxide 23 mmol/L (22-32); Chloride 101 mmol/L (98-107); Estimated Glomerular Filt Rate 27 mL/min (>60); Globulin 3.5 g/dL (1.7-4.1); Glucose 150 mg/dL (80-110); HEMOLYSIS < 15 (0-50); Potassium 4.1 mmol/L (3.4-5.1); Sodium 134 mmol/L (137-145); Total Protein 7.2 g/dL (6.3-8.2)
[2024-04-17] MEDS: METOPROLOL TARTRATE 5 MG/5 ML INJ IV (13:16)
[2024-04-17] MEDS: methocarbamoL 500 MG TABLET PO (14:16)
--- NOTE | 2024-04-17 15:04 | DI.RAD.S_ITS ---
PROCEDURE: XR CHEST 1V INDICATIONS: back scapular pain, elevated troponin TECHNIQUE: One view of the chest was acquired. COMPARISON: None. FINDINGS: Surgical changes and devices: None. Lungs and pleura: Lungs are slightly edematous. No pleural effusions or pneumothorax. Mediastinum: Mediastinal contours appear normal. Heart size is globally enlarged. Bones and chest wall: No suspicious bony lesions. Overlying soft tissues appear unremarkable. IMPRESSION: Slight pulmonary edema with global cardiomegaly, suspect mild acute CHF superimposed on chronic CHF. Dictated by: Hector Rollins M.D. on 04/17/2024 at 15:39 Approved by: Hector Rollins M.D. on 04/17/2024 at 15:40
[2024-04-17] MEDS: ASPIRIN EC 325 MG TABLET PO (15:51)
[2024-04-17 17:44] LABS: PTT Partial Thromboplastin Tim 35 SECONDS (25.1-36.5)
[2024-04-17] MEDS: HEPARIN DRIP 25,000 UNIT/500 ML IV.SOLN 16.874 UNIT IV (18:10)
[2024-04-17] MEDS: HEPARIN 5,000 UNIT/ML VIAL 4200 UNIT IV (18:11)
--- NOTE | 2024-04-17 18:46 | PC.NURSE ---
attempted to call report to the charge nurse at [facility], there was no answer
--- NOTE | 2024-04-17 19:03 | PC.NURSE ---
Phoned Prov again, unable to give report, spoke to WINDOWS SOFTWARE ENGINEER, informed them that pt was on her way and they can call if they want report.
== END 2024-04-17 18:15 | disposition short-term general hospital (02) ==
PROVIDERS: Emergency Provider Emergency Medicine; PCP Family Medicine
DX: I21.4 Non-ST elevation (NSTEMI) myocardial infarction (principal); I48.91 Unspecified atrial fibrillation; S29.012A Strain of muscle and tendon of back wall of thorax, initial encounter; X58.XXXA Exposure to other specified factors, initial encounter; Z87.891 Personal history of nicotine dependence; Z86.79 Personal history of other diseases of the circulatory system
CPT/HCPCS: 36415; 51798; 71045; 80053; 84484; 85025; 85730; 93005; 96374; 96375; 99284; 99291; J1644

== ENCOUNTER 2024-04-24 06:11 | Emergency (ER) | payer MEDICARE, SELFPAY ==
[2024-04-24] VITALS (12 sets, daily range): BP systolic 126–169; BP diastolic 58–89; PULSE 82–92; RESP 13–18; TEMP 36.5–36.8; O2SAT 96–98; BMI 27.4
--- NOTE | 2024-04-24 06:18 | EKG_ITS ---
[facility] [address] [place] [address] Test Date: 2024-04-24 Pat Name: Desire Jenkins Department: [facility] Room: Gender: Female Addiction Medicine Physician: : 1940 Requested By: Order Number: [id number] Reading MD: Timothy Martin Measurements Intervals [place] Rate: 84 P: [place]: QRS: -42 QRSD: 144 T: 2 QT: 430 QTc: 508 Interpretive Statements Atrial fibrillation with premature ventricular or aberrantly conducted complexes Left axis deviation Right bundle branch block Electronically Signed On 04-30-2024 9:03:22 PST by Timothy Martin
--- NOTE | 2024-04-24 06:28 | ED_ITS ---
HPI - Chest Pain <Benito Yeboah, DO - Last Filed: 04/24/24 17:55> General Chief Complaint: Chest Pain Stated Complaint: chest pains Time Seen by Provider: 04/24/24 06:13 Source: patient Mode of arrival: Ambulatory Limitations: no limitations History of Present Illness HPI narrative: Patient was an 84-year-old female who is here for evaluation of chest pain. She states she woke up from sleep to use the restroom. She states she walked back to her bed she was feeling normal. She sat on the edge of the bed and drank a small amount of water. She then started to develop left-sided chest pressure. Lasted approximately 1 hour then completely resolved. EMS was called to the house. She stated that she was evaluated by EMS and was told that everything was okay so she was given the option of driving to the emergency department by private vehicle what she opted to do. She was currently asymptomatic. She was seen here in this emergency department approximately 7 days ago. At the time there was concern for her kidney issues and scapula pain. She had a workup and was found to be in atrial fibrillation with rapid ventricular response. This is improved with metoprolol. She had no prior history of this. Her troponin was elevated. She was transferred to [facility] in effort. She stated that while she was there she had a lot of ?test? completed. It sounds like she did not have a cardiac catheterization. She was placed on Eliquis and discharged home. She states the symptoms that she had this morning she was not having at the time when she was seen here 1 week ago. Related Data Home Medications Medication Instructions Recorded Confirmed magnesium oxide 400 mg (241.3 mg 400 mg PO QDAY ##0 07/19/16 04/21/24 magnesium) tablet atorvastatin 40 mg tablet 40 mg PO BEDTIME 11/14/23 04/21/24 cholecalciferol (vitamin D3) 10 10 mcg PO DAILY 04/21/24 04/21/24 mcg (400 unit) capsule cranberry fruit 450 mg tablet 450 mg PO DAILY 04/21/24 04/21/24 (cranberry) multivitamin 1 tab PO DAILY 04/21/24 04/21/24 Previous Rx's Medication Instructions Recorded lancing device (lancing device #1 ea 11/13/17 with lancets) blood sugar diagnostic (Blood #200 ea 03/11/19 Glucose Test strips) lancets 31 gauge #100 ea 03/11/19 pen needle, diabetic 31 gauge x #100 ea 03/22/2007/12 (Comfort EZ Pen [place]) Disabled Parking #1 ea 05/17/22 amlodipine 5 mg tablet See Rx Instructions .Route 05/20/23 .COMPLEX #90 tabs metoprolol succinate 50 mg See Rx Instructions .Route 05/20/23 tablet,extended release 24 hr .COMPLEX #90 tabs albuterol sulfate 90 mcg/actuation 2 puff PO Q6H PRN for wheezing #21 07/16/23 aerosol inhaler ea Lantus Solostar U-100 Insulin 100 50 unit (0.5 mL) SUBCUT DAILY #15 12/13/23 unit/mL (3 mL) subcutaneous pen mL (insulin glargine) apixaban 2.5 mg tablet 2.5 mg PO BID #60 tabs 04/21/24 Allergies Allergy/AdvReac Type Severity Reaction Status Date / Time Penicillins [PENICILLINS] Allergy Severe SOB Verified 04/17/24 12:05 adhesive [ADHESIVE] Allergy Mild localized Verified 04/17/24 12:05 rash Sulfa (Sulfonamide Allergy Mild rash Verified 04/17/24 12:05 Antibiotics) [SULFA (SULFONAMIDE ANTIBIOTICS)] semaglutide AdvReac Intermediate Nausea; Verified 04/17/24 12:05 abdominal discomfort Review of Systems <Benito Yeboah DO - Last Filed: 04/24/24 17:55> Review of Systems ROS Unobtainable: All systems reviewed & are unremarkable except as noted in HPI and below Patient History <Benito Yeboah DO - Last Filed: 04/24/24 17:55> Medical History Tendonitis of finger COPD (chronic obstructive pulmonary disease) Osteopenia Diabetes mellitus Hypertension Hyperlipidemia Surgical History History of breast biopsy History of cataract removal with insertion of prosthetic lens Status post cholecystectomy Family History Mother Congestive heart failure CVA (cerebral infarction) Afib Social History marital status: Smoking Status: Former smoker alcohol intake: never substance use type: does not use Smoking Status: Former smoker alcohol intake frequency: holidays/special occasions only Exam <Benito Yeboah DO - Last Filed: 04/24/24 17:55> Initial Vital Signs Initial Vital Signs: Vital Signs Pulse Rate 92 H 04/24/24 06:20 Respiratory Rate 14 04/24/24 06:20 Pulse Oximetry 96 04/24/24 06:20 Const General: cooperative, comfortable and No ill appearing HENVT Head: normal to inspection and normocephalic Resp Effort & Inspection: normal respiratory effort Auscultation: clear to auscultation bilaterally Cardio Rate: regular rate Rhythm: abnormal rhythm GI Inspection: non-distended Skin General: no rashes or lesions noted Neuro General: patient alert, patient awake and moves all extremities Extrem General: normal to inspection and capillary refill normal <Robina Henley MD - Last Filed: 04/24/24 10:02> Initial Vital Signs Initial Vital Signs: Vital Signs Pulse Rate 92 H 04/24/24 06:20 Respiratory Rate 14 04/24/24 06:20 Pulse Oximetry 96 04/24/24 06:20 Course <Benito Yeboah DO - Last Filed: 04/24/24 17:55> Orders Ordered: ED Orders 04/24/24 06:13 EKG-12 Lead Stat 04/24/24 06:28 XR chest 1V Stat 04/24/24 06:30 Complete Blood Count AUTO DIFF Stat Comprehensive Metabolic Panel Stat Lipase Stat PTT Partial Thromboplastin Ronnie Stat Prothrombin Time INR Stat Troponin & CK Cardiac Panel Stat 04/24/24 08:50 Troponin I Stat Vital Signs Vital signs: Vital Signs - 8 hr 04/24/24 10:00 04/24/24 10:00 04/24/24 10:15 Temperature 97.7 F Pulse Rate 85 Respiratory Rate 18 Blood Pressure 142/71 H Pulse Oximetry 97 <Robina Henley MD - Last Filed: 04/24/24 10:02> Orders Ordered: ED Orders 04/24/24 06:13 EKG-12 Lead Stat 04/24/24 06:28 XR chest 1V Stat 04/24/24 06:30 Complete Blood Count AUTO DIFF Stat Comprehensive Metabolic Panel Stat Lipase Stat PTT Partial Thromboplastin Ronnie Stat Prothrombin Time INR Stat Troponin & CK Cardiac Panel Stat 04/24/24 08:50 Troponin I Stat Vital Signs Vital signs: Vital Signs - 8 hr 04/24/24 10:00 04/24/24 10:00 04/24/24 10:15 Temperature 97.7 F Pulse Rate 85 Respiratory Rate 18 Blood Pressure 142/71 H Pulse Oximetry 97 MDM - Chest Pain <Benito Yeboah DO - Last Filed: 04/24/24 17:55> Medical Records Data Attestation: I reviewed the patient's medical records. Lab Data Attestation: I reviewed the patient's lab results. 04/24/24 06:30 04/24/24 06:30 Labs: Lab Results 04/24/24 04/24/24 Range/Units 06:30 08:50 WBC 13.9 H (4.5-11.0) X10^3/uL RBC 3.80 L (4.0-5.2) X10^6/uL Hgb 10.2 L (12.0-16.0) g/dL Hct 30.5 L (36-46) % MCV 80.3 (80-100) fL MCH 26.9 (26-34) PG MCHC 33.5 (30-36) % RDW 17.0 H (11.6-14.8) % Plt Count 537 H (150-400) X10^3/uL Neut % (Auto) 73.1 (50-75) % Lymph % (Auto) 11.8 L (25-40) % [place] % (Auto) 11.0 (3-14) % Eos % (Auto) 2.8 (2-4) % Baso % (Auto) 1.3 (0-2) % Neut # (Auto) 85283 H (8443-5859) /uL Lymph # (Auto) 1600 (2679-1818) /uL [place] # (Auto) 1500 H (0-900) /uL Eos # (Auto) 400 (0-450) /uL Baso # (Auto) 200 H (0-100) /uL PT 14.0 H (9.4-12.5) SECONDS INR 1.2 (0.9-1.3) APTT 37 H (25.1-36.5) SECONDS Sodium 136 L (137-145) mmol/L Potassium 4.1 (3.4-5.1) mmol/L Chloride 103 (98-107) mmol/L Carbon Dioxide 24 (22-32) mmol/L BUN 30 H (7-17) mg/dL Creatinine 1.61 H (0.52-1.04) mg/dL Estimated GFR 32 L (>60) mL/min BUN/Creatinine Ratio 18.6 (6-22) Glucose 188 H (80-110) mg/dL Calcium 10.8 H (8.4-10.2) mg/dL Total Bilirubin 0.3 (0.2-1.3) mg/dL AST 33 (14-36) IU/L ALT 46 H (<35) IU/L Alkaline Phosphatase 98 (38-126) U/L Total Creatine Kinase 24 L (30-135) U/L Troponin I 0.100 H 0.092 H (0.01-0.034) ng/mL Total Protein 7.4 (6.3-8.2) g/dL Albumin 3.9 (3.5-5.0) g/dL Globulin 3.5 (1.7-4.1) g/dL Albumin/Globulin Ratio 1.1 (1.0-2.8) Lipase 144 (23-300) U/L ECG Data Interpretation: Atrial fibrillation Ventricular rate 84 Normal [place] Left Bundle-branch One PVC MDM Narrative Medical decision making narrative: Patient had recent transfer with diagnosis of NSTEMI. Has been on anticoagulation for atrial fibrillation is a new diagnosis for 1 week. She was now asymptomatic. A chest pain approximately 3 hours ago that lasted for 1 hour. Nonischemic EKG. Rate controlled AFib on the EKG. Labs ordered. Chest x-ray ordered. Care turned over to day provider to follow up on labs and disposition. <Robina Henley MD - Last Filed: 04/24/24 10:02> Medical Records Data Medical records narrative: Records from [facility] recent admit for NSTEMI: Echocardiogram done on 04/18 shows dilated LV with normal systolic function, ejection fraction 65%. Dilated RV with normal systolic function. [id number]-[id number] aortic stenosis. Mild ascending aortic dilatation 4.4 cm Patient was seen by Cardiology cardiac catheterization was not felt to be appropriate at the time especially with stage 4 kidney disease. Heparin was continued aspirin was discontinued apixaban was started outpatient SPECT study was ordered. Regarding her new atrial fibrillation she was started on metoprolol for rate control and apixaban for prophylaxis Treated with ceftriaxone and discharged home with cefdinir for urinary tract infection Lab Data Labs: Lab Results 04/24/24 04/24/24 Range/Units 06:30 08:50 WBC 13.9 H (4.5-11.0) X10^3/uL RBC 3.80 L (4.0-5.2) X10^6/uL Hgb 10.2 L (12.0-16.0) g/dL Hct 30.5 L (36-46) % MCV 80.3 (80-100) fL MCH 26.9 (26-34) PG MCHC 33.5 (30-36) % RDW 17.0 H (11.6-14.8) % Plt Count 537 H (150-400) X10^3/uL Neut % (Auto) 73.1 (50-75) % Lymph % (Auto) 11.8 L (25-40) % [place] % (Auto) 11.0 (3-14) % Eos % (Auto) 2.8 (2-4) % Baso % (Auto) 1.3 (0-2) % Neut # (Auto) 45164 H (2344-3516) /uL Lymph # (Auto) 1600 (6792-1847) /uL [place] # (Auto) 1500 H (0-900) /uL Eos # (Auto) 400 (0-450) /uL Baso # (Auto) 200 H (0-100) /uL PT 14.0 H (9.4-12.5) SECONDS INR 1.2 (0.9-1.3) APTT 37 H (25.1-36.5) SECONDS Sodium 136 L (137-145) mmol/L Potassium 4.1 (3.4-5.1) mmol/L Chloride 103 (98-107) mmol/L Carbon Dioxide 24 (22-32) mmol/L BUN 30 H (7-17) mg/dL Creatinine 1.61 H (0.52-1.04) mg/dL Estimated GFR 32 L (>60) mL/min BUN/Creatinine Ratio 18.6 (6-22) Glucose 188 H (80-110) mg/dL Calcium 10.8 H (8.4-10.2) mg/dL Total Bilirubin 0.3 (0.2-1.3) mg/dL AST 33 (14-36) IU/L ALT 46 H (<35) IU/L Alkaline Phosphatase 98 (38-126) U/L Total Creatine Kinase 24 L (30-135) U/L Troponin I 0.100 H 0.092 H (0.01-0.034) ng/mL Total Protein 7.4 (6.3-8.2) g/dL Albumin 3.9 (3.5-5.0) g/dL Globulin 3.5 (1.7-4.1) g/dL Albumin/Globulin Ratio 1.1 (1.0-2.8) Lipase 144 (23-300) U/L MDM Narrative Medical decision making narrative: Patient had recent transfer with diagnosis of NSTEMI. Has been on anticoagulation for atrial fibrillation is a new diagnosis for 1 week. She was now asymptomatic. A chest pain approximately 3 hours ago that lasted for 1 hour. Nonischemic EKG. Rate controlled AFib on the EKG. Labs ordered. Chest x-ray ordered. Care turned over to day provider to follow up on labs and disposition. 7am care assumed Dr Henley 84-year-old woman with an hour of chest pressure after walking to the bathroom this morning, NSTEMI treated at [facility] on April 17. Medical record [facility] from [facility]: Amlodipine 5 mg, albuterol inhaler, atorvastatin 40 mg, Eliquis 2.5 mg, atorvastatin 40 mg, Lantus, metoprolol 50 mg daily Additional problems include diabetes, COPD stage 3 kidney disease, peripheral arterial disease, diabetic neuropathy, hypertension, hyperlipidemia At [facility] patient was admitted for NSTEMI, atrial flutter with RVR, UTI started on cefdinir and was instructed to follow up with her primary sat math tutor in 2-4 weeks Continuing to work on getting discharge summary from recent [facility] admission along with the workup done at that time Labs: CBC shows mild leukocytosis at 13.9 which is decreased from 04/17, chronic anemia slightly improved. Chemistries are notable for slightly improved creatinine at 1.6. Calcium elevated at 10.8. AST is returned to normal ALT remains minimally elevated at 46 Troponin currently is positive at 0.1. and on repeat is .092. On April 17 was 2.42. Lipase is unremarkable Chest x-ray: In comparison to April 17, improved cardiomegaly, interstitial findings in the right base minimally changed Case is discussed with Dr. Cisneros, cardiology. In light of pain being different from it was with her NSTEMI a week ago, rapid resolution, troponins trending down with no new injury appreciated, new atrial fibrillation rate controlled and she remains anticoagulated believes discharge home is safe but she does need close follow up and an outpatient SPECT study. In looking at her notes from [facility], it looks like his nurse had called this morning to schedule a follow up appointment and he likely has an appointment available on May 01 at 9:00 a.m.. We will message him with plans for discharge. There is no indication for hospitalization at this Patient had a secondary question regarding diabetes control. She has been on 50 units of Lantus at bedtime with numbers stable for a number of years. She had a aorto bifem bypass a couple of months ago, has lost almost 40 lb in the interim, recent hospitalization she notes that over the last couple of nights her blood sugars have been high with morning sugars in the low 40 range. Last night she gave herself only 40 units and still had a morning sugar in the 40 range. I suggested that she split her Lantus into morning and evening doses 20 units each, continue checking blood sugars and have a small snack before bed. She has a follow up appointment with Dr. Betancourt on April [address] Figueroa, her primary physician, she will be seen by him on May 01 All details reviewed with the patient and her Discharge Plan Departure Patient Disposition: Home Clinical Impression: CKD stage 3 due to type 2 diabetes mellitus, Chest pain, non-cardiac, Hypoglycemia Atrial fibrillation Qualifiers: Atrial fibrillation type: persistent (not longstanding) Qualified Code(s): I 48.19 - Other persistent atrial fibrillation Activity Restrictions/Additional Instructions: Thank you for coming in today Regarding your chest pain: This does not appear to be related to your heart today. Your heart is continuing to heal after the small heart attack and hospitalization last week. You still need an outpatient follow up with your sat math tutor and you should expect to hear from Dr. Evans's nurse later this afternoon. They are aware of your ER evaluation today and will likely expect to see you on May 01 Regarding your high blood sugars at night and low blood sugars in the last few mornings: The low blood sugar may actually have contributed to the chest tightness and pain that you experienced this morning. With the your recent surgeries, heart attack and weight loss it makes sense that your diabetic needs have changed. I am going to suggest that you decrease your total Lantus dose to 40 units daily with 20 units in the morning and 20 units at night with a small snack before you go to bed. Please continue to check morning and evening blood sugars and write down the numbers to review with Dr. Betancourt when you see him to follow up on your diabetes on April 30 Do continue all of your other medications including scheduled morning medications this morning If you find that you are getting worse or develop any new symptoms, please feel free to return to the emergency department for further evaluation. Prescriptions: No Action (DME) Blood Glucose Test Strip See Dose Instructions .ROUTE .MEDSUPPLY Qty: 200 6RF Dose Instruction: As directed Rx Instructions: use to check blood sugar twice a day (DME) lancets 31 gauge misc See Dose Instructions .ROUTE .MEDSUPPLY Qty: 100 3RF Dose Instruction: As directed Rx Instructions: use to check blood sugar twice a day (DME) Disabled Parking See Rx Instructions .ROUTE .MEDSUPPLY Qty: 1 0RF Rx Instructions: I find this patient to be medically disabled and qualified for Disabled Parking as indicated, and signed, on the Accompanying Disabled Parking Application for Individuals magnesium oxide 400 MG tablet 400 mg PO QDAY Qty: 0 (DME) lancing device [lancing device with lancets] misc See Dose Instructions .ROUTE .MEDSUPPLY Qty: 1 0RF Dose Instruction: As directed Rx Instructions: use to check blood sugar twice a day (DME) pen needle, diabetic [Comfort EZ Pen [place]] 31 gauge x 3/16 needle See Dose Instructions .ROUTE .MEDSUPPLY Qty: 100 3RF Dose Instruction: As directed Rx Instructions: For insulin injection daily albuterol sulfate 90 mcg/actuation HFA aerosol inhaler 2 puff PO Q6H PRN (Reason: for wheezing) Qty: 21 11RF Lantus Solostar U-100 Insulin 100 unit/mL (3 mL) insulin pen 50 unit SUBCUT DAILY Qty: 15 5RF apixaban 2.5 mg tablet 2.5 mg PO BID Qty: 60 11RF multivitamin Tablet 1 tab PO DAILY cranberry 450 mg tablet 450 mg PO DAILY Rx Instructions: administer with a meal amlodipine 5 mg tablet See Rx Instructions .ROUTE .COMPLEX Qty: 90 3RF Dose Instruction: Take 1 tablet by mouth once daily Rx Instructions: Take 1 tablet by mouth once daily metoprolol succinate 50 mg tablet extended release 24 hr See Rx Instructions .ROUTE .COMPLEX Qty: 90 3RF Dose Instruction: Take 1 tablet by mouth once daily Rx Instructions: Take 1 tablet by mouth once daily cholecalciferol (vitamin D3) 10 mcg (400 unit) capsule 10 mcg PO DAILY atorvastatin 40 mg tablet 40 mg PO BEDTIME Referrals: Ramón Betancourt MD [Primary Care Provider] - Stand Alone Forms: Patient Portal/API/Survey
--- NOTE | 2024-04-24 06:28 | DI.RAD.S_ITS ---
PROCEDURE: XR CHEST 1V INDICATIONS: chest pain TECHNIQUE: One view of the chest was acquired. COMPARISON: [facility], CR, XR CHEST 1V, 04/17/2024, 15:04. FINDINGS: Surgical changes and devices: None. Lungs and pleura: Blunting of right costophrenic angle is seen suggestive of small right pleural effusion slightly increased compared to previous study. Trace left pleural effusion is also noted. No gross pneumothorax. No definite focal infiltrate. Mild pulmonary vascular congestion is seen. Mediastinum: Mediastinal contours appear normal. Heart size is enlarged. Bones and chest wall: No suspicious bony lesions. Overlying soft tissues appear unremarkable. IMPRESSION: Cardiomegaly and mild congestion with right greater than left bilateral pleural effusion slightly increased compared to previous study. No pneumothorax. No definite focal infiltrate. Dictated by: Tye Camacho M.D. on 04/24/2024 at 8:20 Approved by: Tye Camacho M.D. on 04/24/2024 at 8:21
[2024-04-24 06:40] LABS: Add Manual Diff / Slide Review NO; Basophils Absolute Auto 200 /uL (0-100); Basophils Percent Auto 1.3 % (0-2); Eosinophils Absolute Auto 400 /uL (0-450); Eosinophils Percent Auto 2.8 % (2-4); Hematocrit 30.5 % (36-46); Hemoglobin 10.2 g/dL (12.0-16.0); Lymphocytes Absolute Auto 1600 /uL (1100-4500); Lymphocytes Percent Auto 11.8 % (25-40); Mean Corpuscular HGB Conc 33.5 % (30-36); Mean Corpuscular Hemoglobin 26.9 PG (26-34); Mean Corpuscular Volume 80.3 fL (80-100); Monocytes Absolute Auto 1500 /uL (0-900); Neutrophils Absolute Auto 10200 /uL (1500-7000); Neutrophils Percent Auto 73.1 % (50-75); Platelet Count 537 X10^3/uL (150-400); White Blood Cell Count 13.9 X10^3/uL (4.5-11.0)
[2024-04-24 06:45] LABS: INR 1.2 (0.9-1.3)
[2024-04-24 06:48] LABS: PTT Partial Thromboplastin Tim 37 SECONDS (25.1-36.5)
[2024-04-24 06:49] LABS: Alanine Aminotransferase 46 IU/L (<35); Albumin 3.9 g/dL (3.5-5.0); Albumin Globulin Ratio 1.1 (1.0-2.8); Alkaline Phosphatase 98 U/L (38-126); Aspartate Aminotransferase 33 IU/L (14-36); BUN Creatinine Ratio 18.6 (6-22); Bilirubin Total 0.3 mg/dL (0.2-1.3); Blood Urea Nitrogen 30 mg/dL (7-17); Calcium 10.8 mg/dL (8.4-10.2); Carbon Dioxide 24 mmol/L (22-32); Chloride 103 mmol/L (98-107); Creatine Kinase 24 U/L (30-135); Estimated Glomerular Filt Rate 32 mL/min (>60); Globulin 3.5 g/dL (1.7-4.1); Glucose 188 mg/dL (80-110); HEMOLYSIS < 15 (0-50); Lipase 144 U/L (23-300); Potassium 4.1 mmol/L (3.4-5.1); Sodium 136 mmol/L (137-145); Total Protein 7.4 g/dL (6.3-8.2)
--- NOTE | 2024-04-24 07:55 | PC.NURSE ---
Pt reports walking to restroom this morning w/ onset of chest pain. Pt states she was seen at [facility] last week after being told she had a heart attack at some point. Pt states she was not taken to the mobile lab technician because she is almost in kidney failure and could not withstand the . Pt reports this morning her chest pain resolved within one hour. Pt states she does not know if she is SOB because she has COPD. Pt states her previous shoulder pain has subsided.
[2024-04-24 09:27] LABS: Troponin I 0.092 ng/mL (0.01-0.034)
== END 2024-04-24 10:16 | disposition home or self-care (01) ==
PROVIDERS: Emergency Medicine; Emergency Provider Emergency Medicine; PCP Family Medicine
DX: R07.9 Chest pain, unspecified (principal); I48.91 Unspecified atrial fibrillation; N18.30 Chronic kidney disease, stage 3 unspecified; E11.22 Type 2 diabetes mellitus with diabetic chronic kidney disease; E16.2 Hypoglycemia, unspecified; Z87.891 Personal history of nicotine dependence; Z79.4 Long term (current) use of insulin
CPT/HCPCS: 36415; 71045; 80053; 82550; 83690; 84484; 85025; 85610; 85730; 93005; 99284

== ENCOUNTER 2024-05-01 20:31 | Emergency (ER) | payer MEDICARE, SELFPAY ==
[2024-05-01 20:39] VITALS: BP 135/70; PULSE 95; RESP 18; TEMP 37.1; O2SAT 96; BMI 28.7
--- NOTE | 2024-05-01 20:49 | DI.US.S_ITS ---
PROCEDURE: [facility] VENOUS LOW EXTREM RT INDICATIONS: suspects blood clot in right upper thigh TECHNIQUE: Real-time imaging, as well as color and pulse Doppler interrogation, were performed of the lower extremity deep veins from the inguinal ligament to the popliteal fossa, with documentation of the visualized calf veins. COMPARISON: [facility], , [facility] VENOUS LOW EXTREM RT, 08/19/2023, 14:21. FINDINGS: The common femoral, femoral, popliteal, and the visualized calf veins are normally compressible, and free of intraluminal thrombus. Color and pulse Doppler demonstrate normal phasic intraluminal flow. There is normal augmentation response to distal compression maneuver. IMPRESSION: No findings of lower extremity deep venous thrombosis. Approved by: Lashanda Dc M.D.,Ph.D. on 05/01/2024 at 23:20
[2024-05-01 22:12] VITALS: BP 169/81; PULSE 64; RESP 20; O2SAT 98
== END 2024-05-01 23:48 | disposition left against medical advice (07) ==
PROVIDERS: Emergency Provider Emergency Medicine; PCP Family Medicine
DX: R22.41 Localized swelling, mass and lump, right lower limb (principal)
CPT/HCPCS: 93971; 99281

== ENCOUNTER → 2024-05-12 08:44 | Outpatient (CLI) | payer MEDICARE, SELFPAY ==
[2024-05-12 10:23] LABS: Hemoglobin A1C% w Est Avg Glu 8.7 % (4.0-6.0)
== END ==
PROVIDERS: PCP Family Medicine; Referring Provider Family Medicine; Visit Provider Family Medicine
DX: E11.9 Type 2 diabetes mellitus without complications (principal)
CPT/HCPCS: 36415; 83036

== ENCOUNTER → 2024-05-27 14:47 | Outpatient (CLI) | payer MEDICARE, SELFPAY ==
--- NOTE | 2024-05-27 15:02 | DIAB.MNT ---
Initial Diabetes Medical Nutrition Therapy Assessment Name: Desire Jenkins Date: 05/27/24 Time: 3-4p Dx: Type II Diabetes and CKD Provider: Serafin Preferred Learning Style: Watching/doing Desire presents for initial DM visit. Endorses Dm x 30+ years. FH of DM with paternal grandmother. Father young, unclear of health hx. No previous Dm education. Endorses numbness/tingling in UE and LE per report. Reports a lot of BG changes, highs and lows. Treats lows with juice and pb -20# since December surgery (peripheral artery disease related). No appetite at that time. Improved now. Endorses a lot of stress with health conditions. Had tried split insulin dose as rx'd by PCP but she noticed higher evening readings. Back to 50u HS despite lows in the morning. Diet Recall: 930-10a: coffee with cream, toast and 2 egg OR cereal 1p: cottage cheese and 1c fruit OR Chinese yogurt with 3 crackers 5p: 3/4c casserole with protein/brown rice and veggies OR 1/2 potato with steak or meatload and veg 8-9p: 2 cookies OR cake water 40-60oz coffee Anthropometrics: Ht: 62 Wt: 157# Physical Activity: Seated elliptical 15 mins per day around noon. Self-Monitoring Blood Glucose: Reports BG are higher than usual in evening, and very low in the morning, ie 40-60mg/dl. Cold sweats symptoms for lows. Lows occur twice per week or more. Uses over the counter meter and pays out of pocket for supplies, which are affordable, but would be open to one covered by her insurance. Date Pre Post Pre Post Pre Post HS 05/21 85 323 05/22 235 05/23 42 05/24 52 323 05/25 109 05/26 125 280 05/27 56 Diabetes Medications: 50u Lantus Pertinent Labs: HgA1c: 7.5% 10/2023 8.7% 04/2024 Past Medical History: (Last Reviewed 04/24/24 @ 06:33 by Benito Yeboah DO) COPD (chronic obstructive pulmonary disease) Diabetes mellitus Hyperlipidemia Hypertension Osteopenia Tendonitis of finger Nutrition Rx: Carbohydrates: Meal: 30-45g Snack:15-30g Nutrition Diagnosis: - Excessive CHO intake r/t evening snack and cereal choices aeb diet recall Intervention: This participant was very receptive. Provided appropriate educational handouts. Discussed the following topics: Completed intake assessment. Discussed barriers to care. CGM sample and education Rule of 15 treatment for lows Recommended servings for carbohydrates at meals and snacks [facility] nutrition Brainstormed appropriate meal plan based on food preferences Role of physical activity and following provider guidelines for safety Medication management: reduction of HS insulin recommended, may need meal time insulin to avoid lows and highs, will evaluate with CGm results Created SMART goals for patient self-care and success. Goals: Avoid Raisin Bran Sub protein/carb snack HS Write down evening snacks and time Reduce HS insulin to avoid morning lows - rec going back to PCP recs of split dose Follow-up: WILLY ALMAZAN follow-up in 2 weeks Daylin Greenfield RDN, THA Certified Diabetes Care and Transformer Shop Supervisor P: [phone] Thank you for this referral
== END ==
PROVIDERS: PCP Family Medicine; Referring Provider Physician Assistant
DX: E11.22 Type 2 diabetes mellitus with diabetic chronic kidney disease (principal); N18.9 Chronic kidney disease, unspecified; Z71.3 Dietary counseling and surveillance; Z83.3 Family history of diabetes mellitus; Z79.4 Long term (current) use of insulin
CPT/HCPCS: 97802

== ENCOUNTER → 2024-06-09 14:36 | Outpatient (CLI) | payer MEDICARE, SELFPAY ==
--- NOTE | 2024-06-11 09:08 | DIAB.FU ---
Follow-up Diabetes Education Assessment Name: Desire Jenkins Date: 06/09/24 Time: 3-330p Dx: Type II Diabetes and CKD Provider: Serafin Desire presents for follow-up DM visit, accompanied by her daughter, Natali. Reduced basal insulin to 40u in the AM. No PM dose This has eliminated lows. Tried CGM sample and loved it. RD has coordinated with PCP office for an rx. Kept a food log but forgot it today. Endorses small moderate meals resulting in elevated BG. Treats lows with 4-5oz OJ until at 90mg/dl and then eats a cracker. Skipping HS snack lately Last Diet Recall: 930-10a: coffee with cream, toast and 2 egg OR cereal 1p: cottage cheese and 1c fruit OR Mexican yogurt with 3 crackers 5p: 3/4c casserole with protein/brown rice and veggies OR 1/2 potato with steak or meatload and veg 8-9p: 2 cookies OR cake water 40-60oz coffee Anthropometrics: Ht: 62 Wt: 157# Physical Activity: Seated elliptical 15 mins per day around noon. Self-Monitoring Blood Glucose: Improved FBG but continued elevations after meals TIR: 16% very high 40% high 44% in rnage 0% low avmg/dl GMI: 7.9% std dev: 55mg/dl variatin: 29.1% Diabetes Medications: 40u Lantus AM Pertinent Labs: HgA1c: 7.5% 10/2023 8.7% 04/2024 Past Medical History: (Last Reviewed 04/24/24 @ 06:33 by Benito Yeboah DO) COPD (chronic obstructive pulmonary disease) Diabetes mellitus Hyperlipidemia Hypertension Osteopenia Tendonitis of finger Nutrition Rx: Carbohydrates: Meal: 30-45g Snack:15-30g Nutrition Diagnosis: - Excessive CHO intake r/t evening snack and cereal choices aeb diet recall- improved Intervention: This participant was very receptive. Provided appropriate educational handouts. Discussed the following topics: BG review and trends Potential for meal time insulin Treating lows BG goals Process for personal CGM Created SMART goals for patient self-care and success. Goals: Avoid Raisin Bran- met Sub protein/carb snack HS- d/c Write down evening snacks and time- met Reduce HS insulin to avoid morning lows - rec going back to PCP recs of split dose - met Call [facility] if no call by next week- new Follow-up: [facility] ALMAZAN follow-up in 2-3 weeks or sooner if starting meal time insulin. RD messaged PCP about short acting insulin at the time of this visit. Daylin Greenfield RDN, [facility] Certified Diabetes Care and [employer] P: [phone] Thank you for this referral
== END ==
LOC: DIET 14:37
PROVIDERS: PCP Family Medicine; Referring Provider Family Medicine
DX: E11.22 Type 2 diabetes mellitus with diabetic chronic kidney disease (principal); N18.9 Chronic kidney disease, unspecified; Z71.3 Dietary counseling and surveillance; Z79.4 Long term (current) use of insulin
CPT/HCPCS: G0108

== ENCOUNTER → 2024-06-11 08:41 | Outpatient (CLI) | payer MEDICARE, SELFPAY ==
--- NOTE | 2024-06-11 09:51 | DIAB.FU ---
Follow-up Diabetes Education Assessment Name: Desire Jenkins Date: 06/11/24 Time:9-570a Dx: Type II Diabetes and CKD Provider: Serafin Desire presents for follow-up DM visit Continues on 40u basal AM without lows and FBG in goal. PCP decided to start meal time insulin, rx using 50/50 rule for basal/bolus with 14u TID based on 40u basal dose; however will start with 5-8u at meals. Desire reports pc breakfast usually <180mg/dl. CGM reports previously showed elevated after each meal with greatest elevations after dinner. Will start with 0-5u at breakfast, 5u at lunch and 5-8u at dinner to assess her sensitivity. Physical Activity: Seated elliptical 15 mins per day around noon. Self-Monitoring Blood Glucose: TIR: 16% very high 40% high 44% in rnage 0% low avmg/dl GMI: 7.9% std dev: 55mg/dl variatin: 29.1% Diabetes Medications: 40u Lantus AM Pertinent Labs: HgA1c: 7.5% 10/2023 8.7% 04/2024 Past Medical History: (Last Reviewed 04/24/24 @ 06:33 by Benito Yeboah DO) COPD (chronic obstructive pulmonary disease) Diabetes mellitus Hyperlipidemia Hypertension Osteopenia Tendonitis of finger Intervention: This participant was very receptive. Provided appropriate educational handouts. Discussed the following topics: BG review and trends Rule of 15 for treating lows basal vs bolus insulin When to take meal time insulin, storage, dosing CGM sample and process via [facility] for personal CGM Created SMART goals for patient self-care and success. Goals: Avoid Raisin Bran- met Sub protein/carb snack HS- d/c Write down evening snacks and time- met Reduce HS insulin to avoid morning lows - rec going back to PCP recs of split dose - met Call [facility] if no call by next week- continue Start meal time insulin 2-3x per day - new 0-5u at breakfast 5u at lunch 5-8u at dinner Follow-up: [facility] ALMAZAN follow-up phone call next week and 1:1 in 2-3 weeks in person. Encouraged her to call tomorrow with any questions or concerns. Daylin Greenfield RDN, [facility] Certified Diabetes Care and [employer] P: [phone] Thank you for this referral
== END ==
PROVIDERS: PCP Family Medicine; Referring Provider Physician Assistant
DX: E11.65 Type 2 diabetes mellitus with hyperglycemia (principal); N18.30 Chronic kidney disease, stage 3 unspecified; E11.22 Type 2 diabetes mellitus with diabetic chronic kidney disease; Z71.3 Dietary counseling and surveillance; Z79.4 Long term (current) use of insulin
CPT/HCPCS: G0108

== ENCOUNTER → 2024-07-10 13:02 | Outpatient (CLI) | payer MEDICARE, SELFPAY ==
--- NOTE | 2024-07-10 13:09 | DIAB.MNTFU ---
Addendum entered by Daylin Greenfield 07/17/24 14:29: 07/17/24 Called Desire today to check CGM. Reports UTI and higher BG. Reports potentially one low since last week. States adding cheese before bed, results in less lows. Down to 32u long acting. Lower appetite. Taking meal time x 8u, no lows after. 7 day report: 6% very high 17% high 76% in range 1% low 0% very low States she thinks the elevations are more r/t UTI. Picking up appropriate antibiotics today. Low percentage consistent with previous visit. Anticipate she will continue to have some elevations with infection. F/u appt in three weeks. Encouraged her to call RD if lows persist or if BG go above 250mg/dl consistently. Original Note: Follow-up Diabetes Medical Nutrition Therapy Assessment Name: Desire Jenkins Date: 07/10/24 Time: 1-145 Dx: Type II Diabetes and CKD Provider: Serafin Desire presents for follow-up DM visit Wants to know more about nutrition and how to dose insulin. recently admitted for pneumonia. Reports stress as a result and increased eating out. 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 Reports different BG results with different proteins, but seems this may be more r/t which carbs she eats with beef vs chicken. One particularly low BG after 6u given after rye bread and eggs. Needs reduction. States she no longer has any symptoms with low BG, but she keeps her CGM production packager with her at all times and is treating lows appropriately. Diet recall: B: rye toast with egg OR sausage and eggs L: yogurt D: beef and half baked potato with veggies OR chx casserole with rice or noodles x 1/3-1/3c Physical Activity: Seated elliptical 15 mins per day around noon. 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 One 55-59mg/dl reading. Will encouraged reduced basal insulin to prevent further lows. TIR >70% goal. TIR: 3% very high 13% high 83% in rnage 1% low avmg/dl GMI: 6.6% std dev: 48mg/dl variatin: 35.5% Last TIR: 16% very high 40% high 44% in rnage 0% low avmg/dl GMI: 7.9% std dev: 55mg/dl variatin: 29.1% Diabetes Medications: 40u Lantus AM---- 36u now 14u Lispro TID 6-8u Breakfast 4u Lunch 10-12u Dinner Pertinent Labs: HgA1c: 7.5% 10/2023 8.7% 04/2024 Past Medical History: (Last Reviewed 04/24/24 @ 06:33 by Benito Yeboah DO) COPD (chronic obstructive pulmonary disease) Diabetes mellitus Hyperlipidemia Hypertension Osteopenia Tendonitis of finger Intervention: This participant was very receptive. Provided appropriate educational handouts. Discussed the following topics: BG review and trends Carb portions and dosing insulin accordingly Protein v carbs impact on BG Review of low tx Created SMART goals for patient self-care and success. Goals: Call [facility] if no call by next week- met Start meal time insulin 2-3x per day - d/c 0-5u at breakfast 5u at lunch 5-8u at dinner Reduce HS insulin to 32-34u to avoid lows- new Reduce to 3-4u for breakfast- new Dose insulin based on carb intake, not protein type- new Follow-up: [facility] ALMAZAN follow-up in one week remotely and 4 weeks in-person. Daylin Greenfield RDN, [facility] Certified Diabetes Care and Senior Compliance Officer P: [phone] Thank you for this referral
== END ==
LOC: DIET 13:02
PROVIDERS: PCP Family Medicine; Referring Provider Family Medicine
DX: E11.22 Type 2 diabetes mellitus with diabetic chronic kidney disease (principal); N18.9 Chronic kidney disease, unspecified; Z71.3 Dietary counseling and surveillance; Z79.4 Long term (current) use of insulin
CPT/HCPCS: 97803

== ENCOUNTER → 2024-07-29 14:27 | Outpatient (CLI) | payer MEDICARE, SELFPAY ==
[2024-07-29 15:11] LABS: Appearance Urine UA CLEAR; Bilirubin Urine UA NEGATIVE (NEGATIVE); Color Urine UA YELLOW; Glucose Urine UA NEGATIVE (Negative); Ketones Urine UA NEGATIVE (NEGATIVE); Leukocyte Esterase Urine UA NEGATIVE (NEGATIVE); Nitrite Urine UA NEGATIVE (Negative); Occult Blood Urine UA NEGATIVE (Negative); Protein Urine UA TRACE (Negative); Urobilinogen Urine UA 0.2 E.U./dL (0.2)
[2024-07-29 15:36] LABS: Bacteria Urine None Seen; RBC Urine None Seen (0-5/HPF); Squamous Epithelial Cell Urine None Seen (0-5/HPF); Urine Volume 10mL (spun); WBC Urine 0-1/HPF (0-5/HPF)
[2024-07-29 15:37] LABS: Culture Indicated Urine Cult Not Indicated
== END ==
PROVIDERS: PCP Family Medicine; Visit Provider Physician Assistant
DX: R30.0 Dysuria (principal)
CPT/HCPCS: 81001

== ENCOUNTER → 2024-08-05 12:48 | Outpatient (CLI) | payer MEDICARE, SELFPAY ==
--- NOTE | 2024-08-05 13:43 | DIAB.FU ---
Follow-up Diabetes Education Assessment Name: Desire Jenkins Date: 08/05/24 Time: 1-140p Dx: Type II Diabetes and CKD Provider: Serafin Desire presents for follow-up DM visit Reports increased stress lately with medical appts and recent health conditions of her . States a lot of the activities she does to relieve stress she cannot due to limitations of her hands (ie crocheting) or eyes (ie art or reading for more than 15 mins). Endorses eye appt last December, but glasses give her a headache. Plans to go back to eye provider and discuss. BG overall going very well. No longer having lows frequently. Elevations mid day from breakfast most days. States this is mostly r/t higher CHO breakfasts, ie waffles or cereal, taking 4-6u mealtime insulin usually. Some meals up to 10u. Has questions regarding reordering CGM supplies from [facility]. Self-Monitoring Blood Glucose: Improved with reduced lows, however increased elevations in the mid day contributing to more time >250mg/dl. TIR: 4% very high 17% high 79% in rnage 0% low avmg/dl GMI: 6.9% std dev: 45mg/dl variation: 30.2% Last TIR: 3% very high 13% high 83% in rnage 1% low avmg/dl GMI: 6.6% std dev: 48mg/dl variation: 35.5% Diabetes Medications: 32u Lantus AM 4-10u Lispro TID Pertinent Labs: HgA1c: 7.5% 10/2023 8.7% 04/2024 Past Medical History: (Last Reviewed 04/24/24 @ 06:33 by Benito Yeboah DO) COPD (chronic obstructive pulmonary disease) Diabetes mellitus Hyperlipidemia Hypertension Osteopenia Tendonitis of finger Intervention: This participant was very receptive. Provided appropriate educational handouts. Discussed the following topics: BG review and trends Carb portions and dosing insulin accordingly Increased insulin needs if choosing higher CHO breakfasts Encouraged balanced breakfasts higher in fiber and protein Stress management and impact on BG Eye and dental appt and role in DM care Troubleshooting DME and CGM orders Created SMART goals for patient self-care and success. Goals: Reduce HS insulin to 32-34u to avoid lows- met Reduce to 3-4u for breakfast- met Dose insulin based on carb intake, not protein type- met Call [facility]- new Read for 10 min for stress management- new Contact eye doctor- new Increase insulin at breakfast to 8-10u for higher CHO breakfasts prn- new Get a new dentist- new Follow-up: [facility] ALMAZAN follow-up prn. Sees PCP in October. Desire would like to f/u prn. Encouraged her to call RD for follow-up prn given BG are much more managed, lows have been reduced, and TIR is in goal. She agreed to this plan. Daylin Greenfiedl, [facility], [facility] Certified Diabetes Care and Learning Coach P: [phone] Thank you for this referral
== END ==
PROVIDERS: PCP Family Medicine; Referring Provider Physician Assistant
DX: E11.22 Type 2 diabetes mellitus with diabetic chronic kidney disease (principal); N18.30 Chronic kidney disease, stage 3 unspecified; E11.65 Type 2 diabetes mellitus with hyperglycemia; Z71.3 Dietary counseling and surveillance; Z79.4 Long term (current) use of insulin
CPT/HCPCS: G0108

== ENCOUNTER → 2024-09-30 08:11 | Outpatient (CLI) | payer MEDICARE, SELFPAY ==
[2024-09-30 09:48] LABS: Add Manual Diff / Slide Review NO; Basophils Absolute Auto 100 /uL (0-100); Eosinophils Absolute Auto 500 /uL (0-450); Eosinophils Percent Auto 4.7 % (2-4); Hematocrit 37.5 % (36-46); Hemoglobin 12.1 g/dL (12.0-16.0); Lymphocytes Absolute Auto 1700 /uL (1100-4500); Lymphocytes Percent Auto 16.9 % (25-40); Mean Corpuscular HGB Conc 32.3 % (30-36); Mean Corpuscular Hemoglobin 27.3 PG (26-34); Mean Corpuscular Volume 84.7 fL (80-100); Monocytes Absolute Auto 900 /uL (0-900); Monocytes Percent Auto 9.2 % (3-14); Neutrophils Absolute Auto 7000 /uL (1500-7000); Neutrophils Percent Auto 68.2 % (50-75); Platelet Count 435 X10^3/uL (150-400); Red Blood Cell Count 4.43 X10^6/uL (4.0-5.2); Red Cell Distribution Width 16.7 % (11.6-14.8); White Blood Cell Count 10.2 X10^3/uL (4.5-11.0)
[2024-09-30 10:19] LABS: Alanine Aminotransferase 29 IU/L (<35); Albumin 3.7 g/dL (3.5-5.0); Albumin Globulin Ratio 1.2 (1.0-2.8); Alkaline Phosphatase 88 U/L (38-126); Aspartate Aminotransferase 30 IU/L (14-36); BUN Creatinine Ratio 18.4 (6-22); Bilirubin Total 0.5 mg/dL (0.2-1.3); Blood Urea Nitrogen 32 mg/dL (7-17); Calcium 10.5 mg/dL (8.4-10.2); Carbon Dioxide 26 mmol/L (22-32); Chloride 104 mmol/L (98-107); Cholesterol 111 mg/dL (140-199); Estimated Glomerular Filt Rate 29 mL/min (>60); Glucose 115 mg/dL (70-99); HDL Cholesterol 36 mg/dL (40-60); HEMOLYSIS < 15 (0-50); LDL Cholesterol Calculated 53 mg/dL (<100); Potassium 4.4 mmol/L (3.4-5.1); Sodium 139 mmol/L (137-145); Total Protein 6.7 g/dL (6.3-8.2); Triglycerides 112 mg/dL (35-150)
[2024-09-30 10:43] LABS: Hemoglobin A1C% w Est Avg Glu 6.5 % (4.0-6.0)
== END ==
PROVIDERS: PCP Family Medicine; Referring Provider Internal Medicine Cardiovascular Disease; Visit Provider Internal Medicine Cardiovascular Disease
DX: I10 Essential (primary) hypertension (principal); E11.9 Type 2 diabetes mellitus without complications; D64.9 Anemia, unspecified
CPT/HCPCS: 36415; 80053; 80061; 83036; 85025

== ENCOUNTER → 2024-10-08 09:42 | Outpatient (CLI) | payer MEDICARE, SELFPAY ==
--- NOTE | 2024-10-08 09:43 | DI.NM.S_ITS ---
PROCEDURE: NM PALAK PERF SPECT R&S PHARM Rest and pharmacological stress myocardial perfusion SPECT with gated imaging and ejection fraction RADIOPHARMACEUTICAL: 12.7 mCi Tc-99m tetrafosmin IV at rest and 25 mCi Tc-99m tetrafosmin IV at peak effect of pharmacological stress. [id number] was performed. INDICATIONS: ASHD,JHAVERI PQRS ATTESTATIONS: Measure 322 - Is this imaging test primarily performed on a low-risk surgery patient for preoperative evaluation within 30 days preceding their low-risk non-cardiac surgery? Low-risk surgery is defined as cardiac or myocardial infarction less than 1%, including (but not limited to) endoscopic procedures, superficial procedures, cataract surgery, and excisional breast surgery: Answer: No Measure 323 - Is this imaging test performed primarily for the monitoring of an asymptomatic patient who had percutaneous coronary intervention on the visit date or within 2 years of the visit date? Answer no Measure 324 - Is this imaging test performed primarily for the initial detection and risk assessment on an asymptomatic, low coronary heart disease patient? Low CHD risk definition = clinicians should consider the maximum number of available patient factors used to estimate risk based on [place] (ATP III criteria), typically age, gender, diabetes, smoking status, and use of blood pressure medication, and integrate age appropriate estimates for missing elements, such as LDL or standard blood pressure. Answer: No TECHNIQUE: Radiopharmaceutical was injected at peak stress test, and also at rest. SPECT images were obtained. SPECT myocardial perfusion images were displayed in short axis, horizontal long axis, and vertical long axis views. Gated images were reviewed using [employer] software. COMPARISON: None. CARDIAC STRESS: A pharmacologic stress test was performed under the supervision of an attending staff, using an infusion of 0.4 mg of Lexiscan. Hemodynamic data: There is normal blood pressure and heart rate response to pharmacologic stress. Symptoms: The patient denied anginal chest pain. Aminophylline: None EKG: No diagnostic changes of ischemia; no ectopy. Baseline ECG demonstrated atrial fibrillation with right bundle branch block. FINDINGS: Raw data: There is good myocardial uptake of radiotracer. No significant motion artifacts. Inwy-sn-[id number] ratio is 0.30 (normal is less than 0.38 for tetrafosmin tracer). Left ventricle function: Gated images demonstrate normal left ventricular wall thickening. No segmental wall motion abnormalities. No transient ischemic dilation; TID is 1.03 (normal less than 1.3). Left ventricle resting end diastolic volume is 113 mL. Left ventricle stress ejection fraction is 54%; normal range is above 45%. Myocardial perfusion: Resting images demonstrated severe hypoperfusion in the basal to mid inferior segment. The same perfusion defect is present in the stress images. No prone images obtained. IMPRESSION: 1. 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 2. This is a moderate risk stress test. Dictated by: Brendan Camacho M.D. on 10/08/2024 at 16:24 Approved by: Brendan Camacho M.D. on 10/08/2024 at 16:28
== END ==
PROVIDERS: PCP Family Medicine; Referring Provider Internal Medicine Cardiovascular Disease; Visit Provider Internal Medicine Cardiovascular Disease
DX: I25.10 Atherosclerotic heart disease of native coronary artery without angina pectoris (principal); R06.09 Other forms of dyspnea; R94.39 Abnormal result of other cardiovascular function study
CPT/HCPCS: 78452; 93017; A9502; J2785

== ENCOUNTER → 2025-04-28 08:58 | Outpatient (CLI) | payer MEDICARE, SELFPAY ==
[2025-04-28 09:41] LABS: Hemoglobin A1C% w Est Avg Glu 6.3 % (4.0-6.0)
[2025-04-28 09:58] LABS: Blood Urea Nitrogen 43 mg/dL (7-17); Calcium 10.3 mg/dL (8.4-10.2); Carbon Dioxide 27 mmol/L (22-32); Chloride 103 mmol/L (98-107); Estimated Glomerular Filt Rate 30 mL/min (>60); Glucose 128 mg/dL (70-99); HEMOLYSIS < 15 (0-50); Potassium 4.1 mmol/L (3.4-5.1); Sodium 141 mmol/L (137-145)
== END ==
PROVIDERS: PCP Family Medicine; Referring Provider Family Medicine; Visit Provider Family Medicine
DX: E11.42 Type 2 diabetes mellitus with diabetic polyneuropathy (principal)
CPT/HCPCS: 36415; 80048; 83036